=== PATIENT | male | born 1970 | race Caucasian/White ===

== ENCOUNTER 2017-04-19 09:49 | Inpatient (IN) | payer OTHER ==
[2017-04-19 10:55] VITALS: BMI 23.8
--- NOTE | 2017-04-19 11:07 | HP ---
COWS - Scale Resting Pulse: 0= DE 80 or Below Sweatin= Chills/Flushing Restless Observation: 1= Difficult to Sit Still Pupil Size: 0= Normal to Room Light Bone or Joint Aches: 1= Mild Discomfort Runny Nose/ Eye Tearin= Nasal Congestion GI Upset > 30mins: 1= Stomach Cramp Tremor Observation: 1= Tremor [place], Not Seen Yawning Observation: 1= 1-2x During Session Anxiety or Irritability: 2=Irritable/Anxious Goose Flesh Skin: 0=Smooth Skin COWS Score: 9 Admission ROS S - HPI Chief Complaint: This is my present to myself - I want to be clean of all drugs Allergies/Adverse Reactions: Allergies Allergy/AdvReac Type Severity Reaction Status Date / Time No Known Allergies Allergy Verified 04/19/17 11:04 History of Present Illness: 47 yo gentleman here for detox from intravenous heroin - also uses cocaine and alcohol but not daily. Multiple previous admissions for detox and rehab. Denies seizures or black outs. Exam Limitations: Clinical Condition - Ebola screening Have you traveled outside of the country in the last 21 days: No Have you had contact with anyone from an Ebola affected area: No Have you been sick,other than usual withdrawal symptoms: No Do you have a fever: No - Review of Systems Constitutional: Loss of Appetite, Night Sweats, Changes in sleep, Weakness EENT: reports: Blurred Vision, Nose Congestion Respiratory: reports: No Symptoms reported Cardiac: reports: No Symptoms Reported GI: reports: Nausea, Indigestion : reports: No Symptoms Reported Musculoskeletal: reports: Back Pain, Joint Pain, Muscle Pain Integumentary: reports: Lumps (at track avila both arms - non tender) Neuro: reports: Headache Endocrine: reports: No Symptoms Reported Hematology: reports: No Symptoms Reported Psychiatric: reports: Judgement Intact, Mood/Affect Appropiate, Orientated x3, Anxious Other Systems: Reviewed and Negative Patient History - Patient Medical History Hx Anemia: No Hx Asthma: Yes (albuterol) Hx Chronic Obstructive Pulmonary Disease (COPD): No Hx Cancer: No Hx Cardiac Disorders: No Hx Congestive Heart Failure: No Hx Hypertension: No Hx Hypercholesterolemia: No Hx Pacemaker: No HX Cerebrovascular Accident: No Hx Seizures: No Hx Dementia: No Hx Diabetes: No Hx Gastrointestinal Disorders: No Hx Liver Disease: No Hx Genitourinary Disorders: No Hx Sexually Transmitted Disorders: No Hx Renal Disease (ESRD): No Hx Thyroid Disease: No Hx Human Immunodeficiency Virus (HIV): No Hx Hepatitis C: Yes (2012 - untreated) Hx Depression: Yes (no meds) Hx Suicide Attempt: No Hx Bipolar Disorder: No Hx Schizophrenia: No - Patient Surgical History Past Surgical History: Yes Hx Neurologic Surgery: No Hx Cataract Extraction: No Hx Cardiac Surgery: No Hx Lung Surgery: No Hx Breast Surgery: No Hx Breast Biopsy: No Hx Abdominal Surgery: No Hx Appendectomy: No Hx Cholecystectomy: No Hx Genitourinary Surgery: No Hx Section: No Hx Orthopedic Surgery: Yes (R ANKLE SX IN 07/16) Other Surgical History: L HAND SX IN 2007 Anesthesia Reaction: No - PPD History Previous Implant?: Yes Documented Results: Negative w/proof Implanted On Prior [facility] Admission?: Yes Date: 09/15/16 Results: 0 mm PPD to be Administered?: No - Reproductive History Patient is a Female of Child Bearing Age (11 -55 yrs old): No (male) - Smoking Cessation Smoking history: Current every day smoker Have you smoked in the past 12 months: Yes Aproximately how many cigarettes per day: 20 Cigars Per Day: 0 Hx Chewing Tobacco Use: No Initiated information on smoking cessation: Yes 'Breaking Loose' booklet given: 04/19/17 (give on floor) - Substance & Tx. History Hx Alcohol Use: Yes (not daily) Hx Substance Use: Yes Substance Use Type: Alcohol, Cocaine, Heroin Hx Substance Use Treatment: Yes (detox, rehab methadone program, tried suboxone) - Substances Abused Alcohol Route: Oral Frequency: 3-6 times per week Amount used: two 40oz malt liquor Age of first use: 12 Date of Last Use: 04/16/17 Cocaine Route: Inhalation Frequency: 3-6 times per week Amount used: $100 Age of first use: 14 Date of Last Use: 04/18/17 Heroin Route: Injection Frequency: Daily Amount used: two bundles Age of first use: 38 Date of Last Use: 04/18/17 Family Disease History - Family Disease History Family Disease History: Other: Father (no contact), Mother (alive, healthy) Admission Physical Exam BHS - Vital Signs Vital Signs: Vital Signs - 24 hr 04/19/17 10:51 Temperature 96.8 F L Pulse Rate 73 Respiratory 20 Rate Blood Pressure 105/61 - Physical General Appearance: Yes: Nourished, Appropriately Dressed, Mild Distress, Anxious HEENTM: Yes: Hearing grossly Normal, Normal ENT Inspection, Normocephalic, Normal Voice, Pharynx Normal Respiratory: Yes: No Respiratory Distress, Wheezing Neck: Yes: No masses,lesions,Nodules, Supple, Trachea in good position Breast: Yes: Breast Exam Deferred Cardiology: Yes: Regular Rhythm, Regular Rate Abdominal: Yes: Flat, Soft Genitourinary: Yes: Frequency Back: Yes: Normal Inspection Musculoskeletal: Yes: full range of Motion, Gait Steady, Joint Stiffness Extremities: Yes: Normal Inspection, Normal Range of Motion Neurological: Yes: Fully Oriented, Alert, Normal Mood/Affect, Normal Response Integumentary: Yes: Normal Color, Warm Lymphatic: Yes: Within Normal Limits - Diagnostic (1) Opiate dependence Current Visit: Yes Status: Chronic Qualifiers: Substance use status: uncomplicated Qualified Code(s): F11.20 - Opioid dependence, uncomplicated (2) Asthma Current Visit: Yes Status: Chronic (3) Hepatitis C Current Visit: Yes Status: Chronic Qualifiers: Viral hepatitis chronicity: chronic Hepatic coma status: without hepatic coma Qualified Code(s): B18.2 - Chronic viral hepatitis C (4) Cocaine dependence Current Visit: Yes Status: Chronic Qualifiers: Substance use status: uncomplicated Qualified Code(s): F14.20 - Cocaine dependence, uncomplicated (5) Nicotine dependence Current Visit: Yes Status: Chronic Qualifiers: Nicotine product type: cigarettes Substance use status: uncomplicated Qualified Code(s): F17.210 - Nicotine dependence, cigarettes, uncomplicated Cleared for Admission [facility] - Detox or Rehab [facility] Level of Care: Medically Managed Detox Regimen/Protocol: Methadone [facility] Breath Alcohol Content Breath Alcohol Content: 0 Urine Drug Screen - Results Drug Screen Negative: No Urine Drug Screen Results: DANIE-Cocaine, OPI-Opiates
[2017-04-19] MEDS ORDERED: MAG HYDROX/AL HYDROX/SIMETH 30 ML UNIT-DOSE CUP PO PRN (11:09)
[2017-04-19] MEDS ORDERED: MENTHOL/PHENOL 1 EACH UD MM PRN (11:09)
[2017-04-19] MEDS ORDERED: MAGNESIUM CITRATE 300 ML BOTTLE PO PRN (11:09)
[2017-04-19] MEDS ORDERED: MAGNESIUM HYDROX 2400MG/30ML ORAL SUSPENSION 30 ML CUP PO PRN (11:09)
[2017-04-19] MEDS ORDERED: LOPERAMIDE HCL 2 MG CAPSULE PO PRN (11:09)
[2017-04-19] MEDS ORDERED: NICOTINE POLACRILEX 4 MG GUM BUC PRN (11:09)
[2017-04-19] MEDS ORDERED: P-EPHED 60MG/TRIPROLIDI 2.5MG TABLET PO PRN (11:09)
[2017-04-19] MEDS ORDERED: guaiFENesin/D-METHORPHAN HB 10 ML UNIT-DOSE CUPS PO PRN (11:09)
[2017-04-19] MEDS ORDERED: ALBUTEROL SO4 6.7 GM HFA INHALER IH PRN (11:11)
[2017-04-19] MEDS ORDERED: METHADONE HCL 10 MG TABLET (FOR DETOX USE ONLY) PO ONE ×2 (12:30→23:00)
--- NOTE | 2017-04-19 13:39 | CONSULT ---
[facility] Psychiatric Consult - Data Date of interview: 04/19/17 Admission source: [facility] Identifying data: This is one of multiple admissions to [facility] for this 47 y/ o male seeking detox treatment,on ,for alcohol,cocaine and heroin dependence.Patient is ,a father of two,domiciled and currently employed (self-report). Substance Abuse History: Patient admits to abusing heroin via the intravenous route (2 bundles/day;last use was on 04/18/13.Started using heroin at age 38.Has been drinking beer since age 14 (2 X 40 oz) twice a week.last use was on .Snorts cociane.Abuse started at age 14 and most recent use was .Patient smokes one pack of cigarettes daily. Medical History: Hepatitis C and bronchial asthma.History of orthosurgery for fracture of right ankle (2010) and hand surgery in 2007 (left hand). Psychiatric History: Patient denies. Physical/Sexual Abuse/Trauma History: Patient denies. Additional Comment: Urine Drug Screen Results : positive for cocaine and opiates. Mental Status Exam - Mental Status Exam Alert and Oriented to: Time, Place, Person Cognitive Function: Good Patient Appearance: Unkempt, Disheveled Mood: Withdrawn (dysphoric) Affect: Constricted Patient Behavior: Sedated (mildly sedated;able to answer simple questions), Fatigued, Cooperative Speech Pattern: Clear Voice Loudness: Moderately Soft/Quiet Thought Process: Goal Oriented Thought Disorder: Not Present Hallucinations: Denies Suicidal Ideation: Denies Homicidal Ideation: Denies Insight/Judgement: Poor Sleep: Fair Appetite: Good (as evidenced by empty foodtray at bedside) Muscle strength/Tone: Normal Gait/Station: Normal (observed walking earlier) Psychiatric Findings - Problem List ([place] 1, 2,3) (1) Opioid dependence with withdrawal Current Visit: Yes Status: Acute (2) Cocaine dependence Current Visit: Yes Status: Acute Qualifiers: Substance use status: uncomplicated Qualified Code(s): F14.20 - Cocaine dependence, uncomplicated (3) Alcohol dependence with uncomplicated withdrawal Current Visit: Yes Status: Acute (4) Nicotine dependence Current Visit: Yes Status: Acute Qualifiers: Nicotine product type: cigarettes Substance use status: uncomplicated Qualified Code(s): F17.210 - Nicotine dependence, cigarettes, uncomplicated (5) Substance induced mood disorder Current Visit: Yes Status: Acute (6) Asthma Current Visit: Yes Status: Chronic (7) Hepatitis C Current Visit: Yes Status: Chronic Qualifiers: Viral hepatitis chronicity: chronic Hepatic coma status: without hepatic coma Qualified Code(s): B18.2 - Chronic viral hepatitis C - Initial Treatment Plan Initial Treatment Plan: Previous records are reviewed.BHS report is appreciated.Psychoeducation (brief session due to the patient's mildly sedated state) is initiated.Detoxification treatment started.Observation.
[2017-04-19 18:19] LABS: URINE APPEARANCE CLEAR; URINE BILIRUBIN NEGATIVE (NEGATIVE); URINE BLOOD NEGATIVE (NEGATIVE); URINE COLOR DKYELLOW; URINE GLUCOSE (UA) NEGATIVE (NEGATIVE); URINE KETONE TRACE (NEGATIVE); URINE LEUK ESTERASE NEGATIVE (NEGATIVE); URINE NITRITE NEGATIVE (NEGATIVE); URINE PROTEIN 1+ (NEGATIVE); URINE UROBILINOGEN NEGATIVE mg/dL (0.2-1.0)
[2017-04-19 18:22] LABS: URINE MUCUS FEW; URINE RBC 1 /hpf (0-3); URINE WBC 4 /hpf (3-5)
[2017-04-19] MEDS: THIAMINE HCL 100 MG TABLET (FP) PO SCH (22:30)
[2017-04-19] MEDS: diphenhydrAMINE HCL 50 MG CAPSULE PO PRN (22:30)
[2017-04-19] MEDS: diazePAM 5 MG TABLET PO PRN (22:30)
[2017-04-20] MEDS: ACETAMINOPHEN 325 MG TABLET (FP) PO PRN ×2 (03:30→17:45)
[2017-04-20] MEDS: diazePAM 5 MG TABLET PO PRN ×5 (03:30→22:49)
[2017-04-20] MEDS: hydrOXYzine PAMOATE 50 MG CAPSULE (FP) PO PRN ×3 (06:21→22:49)
[2017-04-20] MEDS: PRENATAL VITAMINS W/ FOLIC ACID TABLET (FP) PO SCH (09:48)
[2017-04-20] MEDS ORDERED: METHADONE HCL 10 MG TABLET (FOR DETOX USE ONLY) PO ONE (10:00)
[2017-04-20 10:03] LABS: MCH 28.3 pg (25.7-33.7); MEAN CELL VOLUME 85.5 fl (80-96); MEAN PLT VOLUME 9.4 fl (7.5-11.1); PLATELET COUNT 217 K/MM3 (134-434); RDW 14.9 % (11.9-15.9); WHITE BLOOD COUNT 5.5 K/mm3 (4.0-10.0)
[2017-04-20 10:14] LABS: ALBUMIN 2.8 g/dl (3.4-5.0); ANION GAP 5 (8-16); CALCIUM 8.5 mg/dL (8.5-10.1); CO2 29 mmol/L (21-32)
[2017-04-20 10:21] LABS: ALK PHOS 119 U/L (45-117); BILIRUBIN,TOTAL 0.4 mg/dL (0.2-1.0); CREATININE 0.7 mg/dL (0.7-1.3); GLUCOSE,RANDOM 96 mg/dL (74-106); SGOT/AST 42 U/L (15-37); SGPT/ALT 52 U/L (12-78); TOT PROT 7.8 g/dl (6.4-8.2)
--- NOTE | 2017-04-20 13:28 | EKG ---
Test Reason : Blood Pressure : / mmHG Vent. Rate : 076 BPM Atrial Rate : 076 BPM P-R Int : 140 ms QRS Dur : 090 ms QT Int : 374 ms P-R-T Axes : 071 070 046 degrees QTc Int : 420 ms NORMAL SINUS RHYTHM NORMAL ECG NO PREVIOUS ECGS AVAILABLE Confirmed by STEFAN FORBES, JOSE ([id number]) on 04/20/2017 1:27:44 PM Referred By: Confirmed By:JOSE AVILES MD
--- NOTE | 2017-04-20 16:04 | PN ---
BHS COWS - Scale Resting Pulse: 1= MD 81-100 Sweatin=Flushed/Facial Moisture Restless Observation: 3= Extraneous Movement Pupil Size: 0= Normal to Room Light Bone or Joint Aches: 2= Severe Diffuse Aches Runny Nose/ Eye Tearin= Runny Nose/Eyes GI Upset > 30mins: 2= Nausea/Diarrhea Tremor Observation of Outstretched Hands: 2= Slight Tremor Visible Yawning Observation: 1= 1-2x During Session Anxiety or Irritability: 2=Irritable/Anxious Goose Flesh Skin: 0=Smooth Skin COWS Score: 17 BHS Progress Note (SOAP) Subjective: Anxious, sweating, restless, legs and back pain, interrupted sleep Objective: 04/20/17 16:01 Last Vital Signs Temp Pulse Resp BP Pulse Ox 96.7 F L 82 16 128/73 04/20/17 13:11 04/20/17 13:11 04/20/17 13:11 04/20/17 13:11 Laboratory Tests 04/19/17 04/20/17 04/20/17 16:08 07:15 07:15 WBC 5.5 RBC 4.39 Hgb 12.4 Hct 37.5 MCV 85.5 MCH 28.3 MCHC 33.0 RDW 14.9 Plt Count 217 MPV 9.4 Sodium 139 Potassium 4.3 Chloride 105 Carbon Dioxide 29 Anion Gap 5 L BUN 11 D Creatinine 0.7 Creat Clearance w eGFR > 60 Random Glucose 96 Calcium 8.5 Total Bilirubin 0.4 AST 42 H ALT 52 D Alkaline Phosphatase 119 H Total Protein 7.8 Albumin 2.8 L Urine Color Dkyellow Urine Appearance Clear Urine pH 5.0 Ur Specific [place] >= 1.030 H Urine Protein 1+ H Urine Glucose (UA) Negative Urine Ketones Trace H Urine Blood Negative Urine Nitrite Negative Urine Bilirubin Negative Urine Urobilinogen Negative Ur Leukocyte Esterase Negative Urine RBC 1 Urine WBC 4 Urine Mucus Few RPR Titer 04/20/17 07:15 WBC RBC Hgb Hct MCV MCH MCHC RDW Plt Count MPV Sodium Potassium Chloride Carbon Dioxide Anion Gap BUN Creatinine Creat Clearance w eGFR Random Glucose Calcium Total Bilirubin AST ALT Alkaline Phosphatase Total Protein Albumin Urine Color Urine Appearance Urine pH Ur Specific [place] Urine Protein Urine Glucose (UA) Urine Ketones Urine Blood Urine Nitrite Urine Bilirubin Urine Urobilinogen Ur Leukocyte Esterase Urine RBC Urine WBC Urine Mucus RPR Titer Nonreactive Labs noted: UA 1+ protein Assessment: 04/20/17 16:02 Withdrawal symptoms Noted with proteinuria Plan: Continue detox Proteinuria: encouraged to drink lots of water, repeat UA
[2017-04-20] MEDS: CYCLOBENZAPRINE HCL 10 MG TABLET (FP) PO SCH (22:49)
[2017-04-20] MEDS: THIAMINE HCL 100 MG TABLET (FP) PO SCH (22:49)
[2017-04-21] MEDS: diazePAM 5 MG TABLET PO PRN ×3 (04:44→22:02)
[2017-04-21] MEDS: CYCLOBENZAPRINE HCL 10 MG TABLET (FP) PO SCH ×3 (05:22→22:02)
[2017-04-21] MEDS: hydrOXYzine PAMOATE 50 MG CAPSULE (FP) PO PRN (07:55)
[2017-04-21] MEDS ORDERED: METHADONE HCL 5 MG TABLET (FOR DETOX USE ONLY) PO ONE (10:00)
[2017-04-21] MEDS: PRENATAL VITAMINS W/ FOLIC ACID TABLET (FP) PO SCH (10:13)
--- NOTE | 2017-04-21 16:08 | PN ---
BHS COWS - Scale Resting Pulse: 2= SD 101-120 Sweatin=Flushed/Facial Moisture Restless Observation: 1= Difficult to Sit Still Pupil Size: 0= Normal to Room Light Bone or Joint Aches: 2= Severe Diffuse Aches Runny Nose/ Eye Tearin= Nasal Congestion GI Upset > 30mins: 1= Stomach Cramp Tremor Observation of Outstretched Hands: 2= Slight Tremor Visible Yawning Observation: 2= >3x During Session Anxiety or Irritability: 2=Irritable/Anxious Goose Flesh Skin: 0=Smooth Skin COWS Score: 15 BHS Progress Note (SOAP) Subjective: Tremors, Fatigue, Sweating, Interrupted Sleep, H/A, Lower Back Ache, Stomach Cramping. Objective: PT. A & O X 3. NO ACUTE DISTRESS. 04/21/17 16:05 Vital Signs Temperature 95.8 F L 04/21/17 10:00 Pulse Rate 81 04/21/17 10:00 Respiratory Rate 18 04/21/17 10:00 Blood Pressure 121/74 04/21/17 10:00 O2 Sat by Pulse Oximetry (%) Laboratory Tests 04/19/17 04/20/17 04/20/17 16:08 07:15 07:15 WBC 5.5 RBC 4.39 Hgb 12.4 Hct 37.5 MCV 85.5 MCH 28.3 MCHC 33.0 RDW 14.9 Plt Count 217 MPV 9.4 Sodium 139 Potassium 4.3 Chloride 105 Carbon Dioxide 29 Anion Gap 5 L BUN 11 D Creatinine 0.7 Creat Clearance w eGFR > 60 Random Glucose 96 Calcium 8.5 Total Bilirubin 0.4 AST 42 H ALT 52 D Alkaline Phosphatase 119 H Total Protein 7.8 Albumin 2.8 L Urine Color Dkyellow Urine Appearance Clear Urine pH 5.0 Ur Specific [place] >= 1.030 H Urine Protein 1+ H Urine Glucose (UA) Negative Urine Ketones Trace H Urine Blood Negative Urine Nitrite Negative Urine Bilirubin Negative Urine Urobilinogen Negative Ur Leukocyte Esterase Negative Urine RBC 1 Urine WBC 4 Urine Mucus Few RPR Titer 04/20/17 07:15 WBC RBC Hgb Hct MCV MCH MCHC RDW Plt Count MPV Sodium Potassium Chloride Carbon Dioxide Anion Gap BUN Creatinine Creat Clearance w eGFR Random Glucose Calcium Total Bilirubin AST ALT Alkaline Phosphatase Total Protein Albumin Urine Color Urine Appearance Urine pH Ur Specific [place] Urine Protein Urine Glucose (UA) Urine Ketones Urine Blood Urine Nitrite Urine Bilirubin Urine Urobilinogen Ur Leukocyte Esterase Urine RBC Urine WBC Urine Mucus RPR Titer Nonreactive LABS NOTED. Assessment: 04/21/17 16:06 WITHDRAWAL SYMPTOMS. Plan: CONTINUE DETOX.
[2017-04-21] MEDS: THIAMINE HCL 100 MG TABLET (FP) PO SCH (22:02)
[2017-04-21] MEDS: diphenhydrAMINE HCL 50 MG CAPSULE PO PRN (22:03)
[2017-04-22] MEDS: diazePAM 5 MG TABLET PO PRN ×2 (04:09→10:07)
[2017-04-22] MEDS: IBUPROFEN 400 MG TABLET (FP) PO PRN (04:11)
[2017-04-22] MEDS: CYCLOBENZAPRINE HCL 10 MG TABLET (FP) PO SCH ×3 (05:37→22:35)
[2017-04-22] MEDS ORDERED: METHADONE HCL 5 MG TABLET (FOR DETOX USE ONLY) PO ONE (10:00)
[2017-04-22] MEDS: PRENATAL VITAMINS W/ FOLIC ACID TABLET (FP) PO SCH (10:06)
--- NOTE | 2017-04-22 13:10 | PN ---
BHS Progress Note (SOAP) Subjective: Tremors, Sweating, Fatigue, Lower Back Ache, H/A, Stomach Cramping, Body aches. Objective: PT. A & O X 3, OBSERVED AMBULATING ON UNIT. NO ACUTE DISTRESS. 04/22/17 13:07 Vital Signs Temperature 97.8 F 04/22/17 09:46 Pulse Rate 87 04/22/17 09:46 Respiratory Rate 18 04/22/17 09:46 Blood Pressure 115/79 04/22/17 09:46 O2 Sat by Pulse Oximetry (%) Laboratory Tests 04/19/17 04/20/17 04/20/17 16:08 07:15 07:15 WBC 5.5 RBC 4.39 Hgb 12.4 Hct 37.5 MCV 85.5 MCH 28.3 MCHC 33.0 RDW 14.9 Plt Count 217 MPV 9.4 Sodium 139 Potassium 4.3 Chloride 105 Carbon Dioxide 29 Anion Gap 5 L BUN 11 D Creatinine 0.7 Creat Clearance w eGFR > 60 Random Glucose 96 Calcium 8.5 Total Bilirubin 0.4 AST 42 H ALT 52 D Alkaline Phosphatase 119 H Total Protein 7.8 Albumin 2.8 L Urine Color Dkyellow Urine Appearance Clear Urine pH 5.0 Ur Specific [place] >= 1.030 H Urine Protein 1+ H Urine Glucose (UA) Negative Urine Ketones Trace H Urine Blood Negative Urine Nitrite Negative Urine Bilirubin Negative Urine Urobilinogen Negative Ur Leukocyte Esterase Negative Urine RBC 1 Urine WBC 4 Urine Mucus Few RPR Titer 04/20/17 07:15 WBC RBC Hgb Hct MCV MCH MCHC RDW Plt Count MPV Sodium Potassium Chloride Carbon Dioxide Anion Gap BUN Creatinine Creat Clearance w eGFR Random Glucose Calcium Total Bilirubin AST ALT Alkaline Phosphatase Total Protein Albumin Urine Color Urine Appearance Urine pH Ur Specific [place] Urine Protein Urine Glucose (UA) Urine Ketones Urine Blood Urine Nitrite Urine Bilirubin Urine Urobilinogen Ur Leukocyte Esterase Urine RBC Urine WBC Urine Mucus RPR Titer Nonreactive LABS NOTED. RESULTS OF REPEAT UA FROM EARLIER TODAY PENDING. 04/22/17 13:10 Assessment: 04/22/17 13:08 WITHDRAWAL SYMPTOMS. Plan: CONTINUE DETOX.
[2017-04-22 16:38] LABS: URINE APPEARANCE CLEAR; URINE BILIRUBIN NEGATIVE (NEGATIVE); URINE BLOOD NEGATIVE (NEGATIVE); URINE COLOR YELLOW; URINE GLUCOSE (UA) NEGATIVE (NEGATIVE); URINE KETONE NEGATIVE (NEGATIVE); URINE LEUK ESTERASE NEGATIVE (NEGATIVE); URINE NITRITE NEGATIVE (NEGATIVE); URINE PROTEIN NEGATIVE (NEGATIVE); URINE UROBILINOGEN NEGATIVE mg/dL (0.2-1.0)
[2017-04-22] MEDS: THIAMINE HCL 100 MG TABLET (FP) PO SCH (22:35)
[2017-04-22] MEDS: diphenhydrAMINE HCL 50 MG CAPSULE PO PRN (22:35)
[2017-04-23] MEDS: IBUPROFEN 400 MG TABLET (FP) PO PRN (04:54)
[2017-04-23] MEDS: CYCLOBENZAPRINE HCL 10 MG TABLET (FP) PO SCH ×3 (06:42→22:34)
[2017-04-23] MEDS ORDERED: LIDOCAINE 5% TOPICAL PATCH TP ONE (09:23)
[2017-04-23] MEDS: PRENATAL VITAMINS W/ FOLIC ACID TABLET (FP) PO SCH (09:58)
[2017-04-23] MEDS ORDERED: METHADONE HCL 10 MG TABLET (FOR DETOX USE ONLY) PO ONE (10:00)
--- NOTE | 2017-04-23 11:46 | PN ---
BHS Progress Note (SOAP) Subjective: Sweating, Lower Back Ache, Interrupted sleep. Objective: PT. A & O X 3, OBSERVED AMBULATING ON UNIT. NO ACUTE DISTRESS. 04/23/17 11:43 Vital Signs Temperature 97.6 F 04/23/17 09:56 Pulse Rate 92 H 04/23/17 09:56 Respiratory Rate 20 04/23/17 09:56 Blood Pressure 100/69 04/23/17 09:56 O2 Sat by Pulse Oximetry (%) Laboratory Tests 04/19/17 04/20/17 04/20/17 16:08 07:15 07:15 WBC 5.5 RBC 4.39 Hgb 12.4 Hct 37.5 MCV 85.5 MCH 28.3 MCHC 33.0 RDW 14.9 Plt Count 217 MPV 9.4 Sodium 139 Potassium 4.3 Chloride 105 Carbon Dioxide 29 Anion Gap 5 L BUN 11 D Creatinine 0.7 Creat Clearance w eGFR > 60 Random Glucose 96 Calcium 8.5 Total Bilirubin 0.4 AST 42 H ALT 52 D Alkaline Phosphatase 119 H Total Protein 7.8 Albumin 2.8 L Urine Color Dkyellow Urine Appearance Clear Urine pH 5.0 Ur Specific [place] >= 1.030 H Urine Protein 1+ H Urine Glucose (UA) Negative Urine Ketones Trace H Urine Blood Negative Urine Nitrite Negative Urine Bilirubin Negative Urine Urobilinogen Negative Ur Leukocyte Esterase Negative Urine RBC 1 Urine WBC 4 Urine Mucus Few RPR Titer 04/20/17 04/22/17 07:15 10:20 WBC RBC Hgb Hct MCV MCH MCHC RDW Plt Count MPV Sodium Potassium Chloride Carbon Dioxide Anion Gap BUN Creatinine Creat Clearance w eGFR Random Glucose Calcium Total Bilirubin AST ALT Alkaline Phosphatase Total Protein Albumin Urine Color Yellow Urine Appearance Clear Urine pH 6.0 Ur Specific [place] 1.020 Urine Protein Negative Urine Glucose (UA) Negative Urine Ketones Negative Urine Blood Negative Urine Nitrite Negative Urine Bilirubin Negative Urine Urobilinogen Negative Ur Leukocyte Esterase Negative Urine RBC Urine WBC Urine Mucus RPR Titer Nonreactive LABS NOTED. RESULTS OF REPEAT UA FROM 04/22/2017 NOTED. NO NEED FOR FURTHER ACTION AT THIS TIME. 04/23/17 11:46 Assessment: 04/23/17 11:44 WITHDRAWAL SYMPTOMS. Plan: CONTINUE DETOX.
[2017-04-23] MEDS ORDERED: LIDOCAINE PATCH REMOVAL MC SCH (22:00)
[2017-04-23 22:14] VITALS: BP 117/69; PULSE 81; TEMP 97
[2017-04-23] MEDS: diphenhydrAMINE HCL 50 MG CAPSULE PO PRN (22:34)
[2017-04-23] MEDS: THIAMINE HCL 100 MG TABLET (FP) PO SCH (22:34)
[2017-04-24] MEDS ORDERED: METHADONE HCL 5 MG TABLET (FOR DETOX USE ONLY) PO ONE (06:00)
--- NOTE | 2017-04-24 19:37 | DS ---
[facility] Detox Discharge Summary Admission Date: 04/19/17 Discharge Date: 04/24/17 - History Present History: Cocaine Dependence, Opioid Dependence Additional Comments: ADVISED PATIENT TO FOLLOW-UP AT [facility] ([place], [place]) PER DISCHARGE PLANNING AND ARRANGEMENTS. Pertinent Past History: Asthma, Hep C, Depression. - Physical Exam Results Vital Signs: Vital Signs Temperature 97.0 F L 04/23/17 22:13 Pulse Rate 81 04/23/17 22:13 Respiratory Rate 18 04/24/17 00:40 Blood Pressure 117/69 04/23/17 22:13 O2 Sat by Pulse Oximetry (%) Pertinent Admission Physical Exam Findings: WITHDRAWAL SYMPTOMS. Laboratory Tests 04/19/17 04/20/17 04/20/17 16:08 07:15 07:15 WBC 5.5 RBC 4.39 Hgb 12.4 Hct 37.5 MCV 85.5 MCH 28.3 MCHC 33.0 RDW 14.9 Plt Count 217 MPV 9.4 Sodium 139 Potassium 4.3 Chloride 105 Carbon Dioxide 29 Anion Gap 5 L BUN 11 D Creatinine 0.7 Creat Clearance w eGFR > 60 Random Glucose 96 Calcium 8.5 Total Bilirubin 0.4 AST 42 H ALT 52 D Alkaline Phosphatase 119 H Total Protein 7.8 Albumin 2.8 L Urine Color Dkyellow Urine Appearance Clear Urine pH 5.0 Ur Specific [place] >= 1.030 H Urine Protein 1+ H Urine Glucose (UA) Negative Urine Ketones Trace H Urine Blood Negative Urine Nitrite Negative Urine Bilirubin Negative Urine Urobilinogen Negative Ur Leukocyte Esterase Negative Urine RBC 1 Urine WBC 4 Urine Mucus Few RPR Titer 04/20/17 04/22/17 07:15 10:20 WBC RBC Hgb Hct MCV MCH MCHC RDW Plt Count MPV Sodium Potassium Chloride Carbon Dioxide Anion Gap BUN Creatinine Creat Clearance w eGFR Random Glucose Calcium Total Bilirubin AST ALT Alkaline Phosphatase Total Protein Albumin Urine Color Yellow Urine Appearance Clear Urine pH 6.0 Ur Specific [place] 1.020 Urine Protein Negative Urine Glucose (UA) Negative Urine Ketones Negative Urine Blood Negative Urine Nitrite Negative Urine Bilirubin Negative Urine Urobilinogen Negative Ur Leukocyte Esterase Negative Urine RBC Urine WBC Urine Mucus RPR Titer Nonreactive LABS NOTED. - Treatment Hospital Course: Detox Protocol Followed, Detoxed Safely, Responded well, Discharged Condition Good, Rehab Referral Accepted Patient has Accepted a Rehab Referral to: [place], [place]. - Medication Discharge Medications: Ambulatory Orders Albuterol Sulfate Inhaler - [Ventolin HFA Inhaler -] 2 inh PO Q4H PRN #1 inh - Diagnosis (1) Cocaine dependence Status: Acute Qualifiers: Substance use status: uncomplicated Qualified Code(s): F14.20 - Cocaine dependence, uncomplicated (2) Nicotine dependence Status: Chronic Qualifiers: Nicotine product type: cigarettes Substance use status: uncomplicated Qualified Code(s): F17.210 - Nicotine dependence, cigarettes, uncomplicated (3) Opioid dependence with withdrawal Status: Acute (4) Substance induced mood disorder Status: Acute (5) Asthma Status: Chronic (6) Hepatitis C Status: Chronic Qualifiers: Viral hepatitis chronicity: chronic Hepatic coma status: without hepatic coma Qualified Code(s): B18.2 - Chronic viral hepatitis C (7) Opiate dependence Status: Chronic Qualifiers: Substance use status: uncomplicated Qualified Code(s): F11.20 - Opioid dependence, uncomplicated - AMA Did Patient Leave Against Medical Advice: No
== END 2017-04-24 05:00 | disposition home or self-care (01) | DRG 773 ==
LOC: YASAS 09:49 → Y3N 11:42
PROVIDERS: ADMIT Internal Medicine; ATTEND Internal Medicine
PROC: HZ2ZZZZ Detoxification Services for Substance Abuse Treatment (ICD-10-PCS; principal; 2017-04-24)
DX: F11.23 Opioid dependence with withdrawal (principal); F10.230 Alcohol dependence with withdrawal, uncomplicated; F14.20 Cocaine dependence, uncomplicated; F17.210 Nicotine dependence, cigarettes, uncomplicated; F19.24 Other psychoactive substance dependence with psychoactive substance-induced mood disorder; B18.2 Chronic viral hepatitis C; J45.909 Unspecified asthma, uncomplicated
CPT/HCPCS: 36415; 80053; 81003; 81015; 85027; 86593; 93005; 93010

== ENCOUNTER 2017-06-03 21:27 | Inpatient (IN) | payer OTHER ==
[2017-06-03] MEDS ORDERED: METHADONE HCL 10 MG TABLET (FOR DETOX USE ONLY) PO ONE ×2 (23:00→23:27)
[2017-06-03 23:13] VITALS: BMI 24.3
--- NOTE | 2017-06-03 23:23 | HP ---
COWS - Scale Resting Pulse: 1= [place] 81-100 Sweatin= Chills/Flushing Restless Observation: 1= Difficult to Sit Still Pupil Size: 0= Normal to Room Light Bone or Joint Aches: 2= Severe Diffuse Aches Runny Nose/ Eye Tearin= Runny Nose/Eyes GI Upset > 30mins: 3= Vomiting/Diarrhea Tremor Observation: 2= Slight Tremor Visible Yawning Observation: 0= None Anxiety or Irritability: 2=Irritable/Anxious Goose Flesh Skin: 0=Smooth Skin COWS Score: 14 Admission [facility] Chief Complaint: withdrawal sx Allergies/Adverse Reactions: Allergies Allergy/AdvReac Type Severity Reaction Status Date / Time No Known Allergies Allergy Verified 04/19/17 11:04 History of Present Illness: 47 years old male with long history of opiate nicotine dependence has hepatitis c and asthma and depression is admitted to detox Exam Limitations: No Limitations - Ebola screening Have you traveled outside of the country in the last 21 days: No (N) Have you had contact with anyone from an Ebola affected area: No Have you been sick,other than usual withdrawal symptoms: No Do you have a fever: No - Review of Systems Constitutional: Loss of Appetite, Changes in sleep, Unintentional Wgt. Loss, Unexplained wgt Loss EENT: reports: Dental Problems (multiple teeth missing) Respiratory: reports: SOB with Exertion Cardiac: reports: No Symptoms Reported : reports: No Symptoms Reported Musculoskeletal: reports: Back Pain, Joint Pain, Muscle Pain, Neck Pain Integumentary: reports: Change in Color (hands and arms) Neuro: reports: Tremors Endocrine: reports: No Symptoms Reported Hematology: reports: No Symptoms Reported Psychiatric: reports: Judgement Intact, Orientated x3, Depressed Other Systems: Reviewed and Negative Patient History - Patient Medical History Hx Anemia: No Hx Asthma: Yes (albuterol) Hx Chronic Obstructive Pulmonary Disease (COPD): No Hx Cancer: No Hx Cardiac Disorders: No Hx Congestive Heart Failure: No Hx Hypertension: No Hx Hypercholesterolemia: No Hx Pacemaker: No HX Cerebrovascular Accident: No Hx Seizures: No Hx Dementia: No Hx Diabetes: No Hx Gastrointestinal Disorders: No Hx Liver Disease: No Hx Genitourinary Disorders: No Hx Sexually Transmitted Disorders: No Hx Renal Disease (ESRD): No Hx Thyroid Disease: No Hx Human Immunodeficiency Virus (HIV): No Hx Hepatitis C: Yes (2012 - untreated) Hx Depression: Yes (no meds) Hx Suicide Attempt: No Hx Bipolar Disorder: No Hx Schizophrenia: No - Patient Surgical History Past Surgical History: Yes Hx Neurologic Surgery: No Hx Cataract Extraction: No Hx Cardiac Surgery: No Hx Lung Surgery: No Hx Breast Surgery: No Hx Breast Biopsy: No Hx Abdominal Surgery: No Hx Appendectomy: No Hx Cholecystectomy: No Hx Genitourinary Surgery: No Hx Orthopedic Surgery: Yes (R ANKLE SX IN 07/16) Other Surgical History: L HAND SX IN 2007 Anesthesia Reaction: No - PPD History Previous Implant?: Yes Documented Results: Negative w/proof Implanted On Prior R Admission?: Yes Date: 09/15/16 Results: 0 mm PPD to be Administered?: No - Smoking Cessation Smoking history: Current every day smoker Have you smoked in the past 12 months: Yes Aproximately how many cigarettes per day: 20 Cigars Per Day: 0 Hx Chewing Tobacco Use: No Initiated information on smoking cessation: Yes 'Breaking Loose' booklet given: 06/03/17 - Substance & Tx. History Hx Alcohol Use: No Hx Substance Use: Yes Substance Use Type: Cocaine, Opiates Hx Substance Use Treatment: Yes (04/19-04/24/17 [facility]) - Substances Abused Heroin Route: Injection Frequency: Daily Amount used: 20 bags Age of first use: 38 Date of Last Use: 06/03/17 Family Disease History - Family Disease History Family Disease History: Other: Father (no contact), Mother (alive, healthy) Admission Physical Exam BHS - Vital Signs Vital Signs: Vital Signs - 24 hr 06/03/17 23:09 Temperature 96.8 F L Pulse Rate 81 Respiratory 20 Rate Blood Pressure 120/79 - Physical General Appearance: Yes: Appropriately Dressed, Mild Distress, Thin, Tremorous, Irritable, Sweating, Anxious HEENTM: Yes: Hearing grossly Normal, Normal ENT Inspection, Normocephalic, Normal Voice Respiratory: Yes: Chest Non-Tender, Lungs Clear, Normal Breath Sounds, No Respiratory Distress, No Accessory Muscle Use Neck: Yes: Supple, Trachea in good position Breast: Yes: Breasts Symetrical Cardiology: Yes: Regular Rhythm, Regular Rate, S1, S2 Abdominal: Yes: Non Tender, Soft, Increased Bowel Sounds Genitourinary: Yes: Within Normal Limits Back: Yes: Normal Inspection Musculoskeletal: Yes: full range of Motion, Gait Steady, Back pain, Muscle Pain Neurological: Yes: Fully Oriented, Alert, Motor Strength 5/5, Normal Response, Depressed Affect Integumentary: Yes: Warm, Track [place] Lymphatic: Yes: Within Normal Limits - Diagnostic (1) Opioid dependence with withdrawal Current Visit: Yes Status: Acute (2) Asthma Current Visit: Yes Status: Chronic (3) Hepatitis C Current Visit: Yes Status: Chronic Qualifiers: Viral hepatitis chronicity: chronic Hepatic coma status: without hepatic coma Qualified Code(s): B18.2 - Chronic viral hepatitis C (4) Nicotine dependence Current Visit: Yes Status: Acute Qualifiers: Nicotine product type: cigarettes Substance use status: in withdrawal Qualified Code(s): F17.213 - Nicotine dependence, cigarettes, with withdrawal (5) Weight decreased Current Visit: Yes Status: Acute Comment: ensure (6) Depression (emotion) Current Visit: Yes Status: Suspected Qualifiers: Depression Type: dysthymia Qualified Code(s): F34.1 - Dysthymic disorder Cleared for Admission [facility] - Detox or Rehab [facility] Level of Care: Medically Managed Detox Regimen/Protocol: Methadone [facility] Breath Alcohol Content Breath Alcohol Content: 0 Urine Drug Screen - Results Drug Screen Negative: No Urine Drug Screen Results: DANIE-Cocaine, OPI-Opiates
[2017-06-03] MEDS ORDERED: ACETAMINOPHEN 325 MG TABLET (FP) PO PRN (23:27)
[2017-06-03] MEDS ORDERED: MAGNESIUM HYDROX 2400MG/30ML ORAL SUSPENSION 30 ML CUP PO PRN (23:27)
[2017-06-03] MEDS ORDERED: guaiFENesin/D-METHORPHAN HB 10 ML UNIT-DOSE CUPS PO PRN (23:27)
[2017-06-03] MEDS ORDERED: LOPERAMIDE HCL 2 MG CAPSULE PO PRN (23:27)
[2017-06-03] MEDS ORDERED: MAG HYDROX/AL HYDROX/SIMETH 30 ML UNIT-DOSE CUP PO PRN (23:27)
[2017-06-03] MEDS ORDERED: P-EPHED 60MG/TRIPROLIDI 2.5MG TABLET PO PRN (23:27)
[2017-06-03] MEDS ORDERED: MAGNESIUM CITRATE 300 ML BOTTLE PO PRN (23:27)
[2017-06-03] MEDS ORDERED: MENTHOL/PHENOL 1 EACH UD MM PRN (23:27)
[2017-06-03] MEDS ORDERED: NICOTINE POLACRILEX 4 MG GUM BC PRN (23:27)
[2017-06-03] MEDS ORDERED: diazePAM 5 MG TABLET PO PRN (23:27)
[2017-06-03] MEDS ORDERED: ALBUTEROL SO4 6.7 GM HFA INHALER IH PRN (23:30)
[2017-06-04] MEDS ORDERED: METHADONE HCL 10 MG TABLET (FOR DETOX USE ONLY) PO ONE ×4 (00:04→23:00)
[2017-06-04] MEDS: diphenhydrAMINE HCL 50 MG CAPSULE PO PRN ×2 (00:49→22:22)
[2017-06-04] MEDS: diazePAM 5 MG TABLET PO PRN ×2 (00:49→22:22)
[2017-06-04] MEDS: LIDOCAINE PATCH REMOVAL MC SCH ×2 (00:51→22:56)
[2017-06-04] MEDS: IBUPROFEN 400 MG TABLET (FP) PO PRN (00:53)
[2017-06-04] MEDS: CYCLOBENZAPRINE HCL 10 MG TABLET (FP) PO SCH ×3 (05:54→22:21)
--- NOTE | 2017-06-04 09:47 | CONSULT ---
[facility] Psychiatric Consult - Data Date of interview: 06/04/17 Admission source: [facility] Identifying data: This is 47 years old female with no psychiatric hospitalizatiojn history intoxicated wioth: Opioids, Alcohol, history of Cocaine and Nicotine dependence as well Substance Abuse History: - Smoking Cessation. Smoking history: Current every day smoker. Have you smoked in the past 12 months: Yes. Aproximately how many cigarettes per day: 20. Cigars Per Day: 0. Hx Chewing Tobacco Use: No. Initiated information on smoking cessation: Yes. 'Breaking Loose' booklet given : 06/03/17. - Substance & Tx. History. Hx Alcohol Use: No. Hx Substance Use: Yes. Substance Use Type: Cocaine, Opiates. Hx Substance Use Treatment: Yes (-04/24/17 [facility]). - Substances Abused. Heroin. Route: Injection. Frequency: Daily. Amount used: 20 bags. Age of first use: 38. Date of Last Use: 06/03/17 Medical History: Weight loss, Asthma, HepC+ Psychiatric History: Patient reports history of depression and anxiety, reports no medications taking prior to admission Physical/Sexual Abuse/Trauma History: Denies Additional Comment: Observation. Detox Unit Care Protocol Mental Status Exam - Mental Status Exam Alert and Oriented to: Person Cognitive Function: Fair Patient Appearance: Unkempt Mood: Sad Affect: Flat Patient Behavior: Sedated Speech Pattern: Delayed Voice Loudness: Mildly Soft/Quiet Thought Process: Circumstantial Thought Disorder: Being Controlled Hallucinations: Denies Suicidal Ideation: Denies Homicidal Ideation: Denies Insight/Judgement: Fair Sleep: Difficulty falling asleep Appetite: Weight loss Muscle strength/Tone: Mild Hypotonicity Gait/Station: Shuffling Additional Comments: Observation. Detox Unit Care Protocol Psychiatric Findings - Problem List ([place] 1, 2,3) (1) Nicotine dependence Current Visit: Yes Status: Acute Qualifiers: Nicotine product type: cigarettes Substance use status: in withdrawal Qualified Code(s): F17.213 - Nicotine dependence, cigarettes, with withdrawal (2) Opioid dependence with withdrawal Current Visit: Yes Status: Acute (3) Depression (emotion) Current Visit: Yes Status: Suspected Qualifiers: Depression Type: dysthymia Qualified Code(s): F34.1 - Dysthymic disorder (4) Alcohol dependence with uncomplicated withdrawal Current Visit: No Status: Acute (5) Cocaine dependence Current Visit: No Status: Acute Qualifiers: Substance use status: uncomplicated Qualified Code(s): F14.20 - Cocaine dependence, uncomplicated (6) Substance induced mood disorder Current Visit: No Status: Acute (7) Uncomplicated opioid dependence Current Visit: No Status: Acute (8) Alcohol dependence Current Visit: No Status: Chronic (9) Heroin dependence Current Visit: No Status: Chronic (10) Opiate dependence Current Visit: No Status: Chronic Qualifiers: Substance use status: uncomplicated Qualified Code(s): F11.20 - Opioid dependence, uncomplicated (11) Opioid-induced mood disorder Current Visit: No Status: Suspected - Initial Treatment Plan Initial Treatment Plan: Observation. Detox Unit Care Protocol
[2017-06-04 10:09] LABS: MCH 27.9 pg (25.7-33.7); MCHC 32.9 g/dl (32.0-35.9); MEAN CELL VOLUME 84.9 fl (80-96); MEAN PLT VOLUME 9.3 fl (7.5-11.1); PLATELET COUNT 195 K/MM3 (134-434); WHITE BLOOD COUNT 5.7 K/mm3 (4.0-10.0)
[2017-06-04 10:31] LABS: ANION GAP 5 (8-16); BILIRUBIN,TOTAL 0.5 mg/dL (0.2-1.0); CALCIUM 8.9 mg/dL (8.5-10.1); CO2 31 mmol/L (21-32); CREATININE 0.8 mg/dL (0.7-1.3); GLUCOSE,RANDOM 89 mg/dL (74-106); SGOT/AST 32 U/L (15-37); SGPT/ALT 48 U/L (12-78); TOT PROT 7.3 g/dl (6.4-8.2)
[2017-06-04 10:32] LABS: ALK PHOS 112 U/L (45-117)
[2017-06-04] MEDS: LIDOCAINE 5% TOPICAL PATCH TP SCH (10:34)
[2017-06-04] MEDS: NICOTINE 21 MG/24 HOURS TOPICAL PATCH TD SCH (10:34)
[2017-06-04] MEDS: PRENATAL VITAMINS W/ FOLIC ACID TABLET (FP) PO SCH (10:34)
--- NOTE | 2017-06-04 11:39 | PN ---
BHS COWS - Scale Resting Pulse: 1= [place] 81-100 Sweatin= Chills/Flushing Restless Observation: 1= Difficult to Sit Still Pupil Size: 1= Pupils >than Normal Bone or Joint Aches: 1= Mild Discomfort Runny Nose/ Eye Tearin= Nasal Congestion GI Upset > 30mins: 2= Nausea/Diarrhea Tremor Observation of Outstretched Hands: 1= Tremor [place], Not Seen Yawning Observation: 1= 1-2x During Session Anxiety or Irritability: 2=Irritable/Anxious Goose Flesh Skin: 3=Piloerection COWS Score: 15 BHS Progress Note (SOAP) Subjective: nausea, sweats, interrupted sleep, anxiety, tremors Objective: 06/04/17 11:38 Vital Signs - 8 hr 06/04/17 06/04/17 06:28 09:50 Temperature 97.5 F L 98.1 F Pulse Rate 63 87 Respiratory 16 20 Rate Blood Pressure 114/74 136/70 Laboratory Tests 06/04/17 06/04/17 07:00 07:00 WBC 5.7 RBC 4.23 Hgb 11.8 Hct 35.9 MCV 84.9 MCH 27.9 MCHC 32.9 RDW 15.0 Plt Count 195 MPV 9.3 Sodium 140 Potassium 3.7 Chloride 104 Carbon Dioxide 31 Anion Gap 5 L BUN 16 D Creatinine 0.8 Creat Clearance w eGFR > 60 Random Glucose 89 Calcium 8.9 Total Bilirubin 0.5 D AST 32 D ALT 48 Alkaline Phosphatase 112 Total Protein 7.3 Albumin 3.0 L Assessment: 06/04/17 11:38 withdrawal sx, supplement k Plan: cont detox, fluids, repeat labs
[2017-06-04] MEDS: BACITRACIN 0.9 GM PACKET TP SCH (22:21)
[2017-06-04] MEDS: THIAMINE HCL 100 MG TABLET (FP) PO SCH (22:21)
[2017-06-05] MEDS: CYCLOBENZAPRINE HCL 10 MG TABLET (FP) PO SCH ×3 (06:01→22:25)
[2017-06-05] MEDS ORDERED: METHADONE HCL 10 MG TABLET (FOR DETOX USE ONLY) PO ONE (10:00)
[2017-06-05] MEDS ORDERED: METHADONE HCL 5 MG TABLET (FOR DETOX USE ONLY) PO ONE (10:00)
[2017-06-05] MEDS: diazePAM 5 MG TABLET PO PRN ×2 (10:35→22:25)
[2017-06-05] MEDS: NICOTINE 21 MG/24 HOURS TOPICAL PATCH TD SCH (10:35)
[2017-06-05] MEDS: PRENATAL VITAMINS W/ FOLIC ACID TABLET (FP) PO SCH (10:35)
[2017-06-05] MEDS: LIDOCAINE 5% TOPICAL PATCH TP SCH (10:36)
--- NOTE | 2017-06-05 11:34 | EKG ---
Test Reason : Blood Pressure : / mmHG Vent. Rate : 066 BPM Atrial Rate : 066 BPM P-R Int : 148 ms QRS Dur : 092 ms QT Int : 408 ms P-R-T Axes : 067 069 048 degrees QTc Int : 427 ms NORMAL SINUS RHYTHM SEPTAL INFARCT , AGE UNDETERMINED ABNORMAL ECG WHEN COMPARED WITH ECG OF 19-APR-2017 11:29, NO SIGNIFICANT CHANGE WAS FOUND Confirmed by GAUDENCIO WALLACE MD ([id number]) on 06/05/2017 11:34:26 AM Referred By: Ramon Suresh Confirmed By:GAUDENCIO WALLACE MD
--- NOTE | 2017-06-05 13:12 | PN ---
BHS COWS - Scale Resting Pulse: 1= [place] 81-100 Sweatin= Chills/Flushing Restless Observation: 1= Difficult to Sit Still Pupil Size: 1= Pupils >than Normal Bone or Joint Aches: 1= Mild Discomfort Runny Nose/ Eye Tearin= Nasal Congestion GI Upset > 30mins: 2= Nausea/Diarrhea Tremor Observation of Outstretched Hands: 2= Slight Tremor Visible Yawning Observation: 1= 1-2x During Session Anxiety or Irritability: 2=Irritable/Anxious Goose Flesh Skin: 3=Piloerection COWS Score: 16 BHS Progress Note (SOAP) Subjective: nausea, sweats, interrutped sleep, anxiety, tremors Objective: 06/05/17 13:11 Vital Signs - 24 hr 06/04/17 06/04/17 06/05/17 16:57 22:00 00:30 Temperature 97 F L 97.7 F Pulse Rate 57 L 80 Respiratory 18 18 18 Rate Blood Pressure 124/72 149/77 06/05/17 06/05/17 06/05/17 03:30 06:36 09:31 Temperature 97.8 F 97.7 F Pulse Rate 60 89 Respiratory 18 18 18 Rate Blood Pressure 133/76 119/76 Laboratory Tests 06/04/17 06/04/17 06/04/17 07:00 07:00 07:00 WBC 5.7 RBC 4.23 Hgb 11.8 Hct 35.9 MCV 84.9 MCH 27.9 MCHC 32.9 RDW 15.0 Plt Count 195 MPV 9.3 Sodium 140 Potassium 3.7 Chloride 104 Carbon Dioxide 31 Anion Gap 5 L BUN 16 D Creatinine 0.8 Creat Clearance w eGFR > 60 Random Glucose 89 Calcium 8.9 Total Bilirubin 0.5 D AST 32 D ALT 48 Alkaline Phosphatase 112 Total Protein 7.3 Albumin 3.0 L RPR Titer Nonreactive u/a pending Assessment: 06/05/17 13:12 withdrawwl sx Plan: cont detox
[2017-06-05 16:17] LABS: URINE APPEARANCE CLEAR; URINE BILIRUBIN NEGATIVE (NEGATIVE); URINE BLOOD NEGATIVE (NEGATIVE); URINE COLOR YELLOW; URINE GLUCOSE (UA) NEGATIVE (NEGATIVE); URINE KETONE NEGATIVE (NEGATIVE); URINE LEUK ESTERASE NEGATIVE (NEGATIVE); URINE NITRITE NEGATIVE (NEGATIVE); URINE PROTEIN NEGATIVE (NEGATIVE); URINE UROBILINOGEN NEGATIVE mg/dL (0.2-1.0)
[2017-06-05] MEDS: THIAMINE HCL 100 MG TABLET (FP) PO SCH (22:25)
[2017-06-05] MEDS: diphenhydrAMINE HCL 50 MG CAPSULE PO PRN (22:26)
[2017-06-05] MEDS: BACITRACIN 0.9 GM PACKET TP SCH (22:27)
[2017-06-05] MEDS: LIDOCAINE PATCH REMOVAL MC SCH (22:40)
[2017-06-06] MEDS: CYCLOBENZAPRINE HCL 10 MG TABLET (FP) PO SCH ×3 (06:35→22:16)
[2017-06-06] MEDS ORDERED: METHADONE HCL 5 MG TABLET (FOR DETOX USE ONLY) PO ONE ×2 (10:00)
[2017-06-06] MEDS: diazePAM 5 MG TABLET PO PRN ×2 (10:29→22:17)
[2017-06-06] MEDS: PRENATAL VITAMINS W/ FOLIC ACID TABLET (FP) PO SCH (10:29)
[2017-06-06] MEDS: LIDOCAINE 5% TOPICAL PATCH TP SCH (10:30)
[2017-06-06] MEDS: NICOTINE 21 MG/24 HOURS TOPICAL PATCH TD SCH (10:30)
--- NOTE | 2017-06-06 11:36 | PN ---
BHS Progress Note (SOAP) Subjective: ALERT,IRRITABLE,ANXIOUS,INTERRUPTED SLEEP,PAIN IN THE BODY Objective: 06/06/17 11:35 Vital Signs Temperature 97.0 F L 06/06/17 10:02 Pulse Rate 93 H 06/06/17 10:02 Respiratory Rate 18 06/06/17 10:02 Blood Pressure 107/78 06/06/17 10:02 O2 Sat by Pulse Oximetry (%) Assessment: 06/06/17 11:35 WITHDRAWAL SYMPTOM Plan: CONTINUE DETOX
[2017-06-06] MEDS: THIAMINE HCL 100 MG TABLET (FP) PO SCH (22:16)
[2017-06-06] MEDS: BACITRACIN 0.9 GM PACKET TP SCH (22:19)
[2017-06-06] MEDS: LIDOCAINE PATCH REMOVAL MC SCH (22:19)
[2017-06-07] MEDS: CYCLOBENZAPRINE HCL 10 MG TABLET (FP) PO SCH ×3 (05:07→22:09)
[2017-06-07] MEDS: IBUPROFEN 400 MG TABLET (FP) PO PRN (05:07)
[2017-06-07] MEDS ORDERED: METHADONE HCL 5 MG TABLET (FOR DETOX USE ONLY) PO ONE (10:00)
[2017-06-07] MEDS ORDERED: METHADONE HCL 10 MG TABLET (FOR DETOX USE ONLY) PO ONE (10:00)
[2017-06-07] MEDS ORDERED: hydrOXYzine PAMOATE 50 MG CAPSULE (FP) PO PRN (10:07)
--- NOTE | 2017-06-07 10:09 | PN ---
BHS Progress Note (SOAP) Subjective: nausea, sweats, interrupted sleep, anxiety, tremors Objective: 06/07/17 10:08 Vital Signs - 8 hr 06/07/17 06/07/17 06/07/17 03:30 06:00 09:59 Temperature 97.3 F L 97.7 F Pulse Rate 98 H 94 H Respiratory 18 18 18 Rate Blood Pressure 120/86 104/66 Laboratory Tests 06/04/17 06/04/17 06/04/17 07:00 07:00 07:00 WBC 5.7 RBC 4.23 Hgb 11.8 Hct 35.9 MCV 84.9 MCH 27.9 MCHC 32.9 RDW 15.0 Plt Count 195 MPV 9.3 Sodium 140 Potassium 3.7 Chloride 104 Carbon Dioxide 31 Anion Gap 5 L BUN 16 D Creatinine 0.8 Creat Clearance w eGFR > 60 Random Glucose 89 Calcium 8.9 Total Bilirubin 0.5 D AST 32 D ALT 48 Alkaline Phosphatase 112 Total Protein 7.3 Albumin 3.0 L Urine Color Urine Appearance Urine pH Ur Specific [place] Urine Protein Urine Glucose (UA) Urine Ketones Urine Blood Urine Nitrite Urine Bilirubin Urine Urobilinogen Ur Leukocyte Esterase RPR Titer Nonreactive 06/05/17 10:30 WBC RBC Hgb Hct MCV MCH MCHC RDW Plt Count MPV Sodium Potassium Chloride Carbon Dioxide Anion Gap BUN Creatinine Creat Clearance w eGFR Random Glucose Calcium Total Bilirubin AST ALT Alkaline Phosphatase Total Protein Albumin Urine Color Yellow Urine Appearance Clear Urine pH 6.0 Ur Specific [place] 1.020 Urine Protein Negative Urine Glucose (UA) Negative Urine Ketones Negative Urine Blood Negative Urine Nitrite Negative Urine Bilirubin Negative Urine Urobilinogen Negative Ur Leukocyte Esterase Negative RPR Titer Assessment: 06/07/17 10:08 withdrawal sx Plan: cont detox, fluids
[2017-06-07] MEDS: NICOTINE 21 MG/24 HOURS TOPICAL PATCH TD SCH (10:27)
[2017-06-07] MEDS: PRENATAL VITAMINS W/ FOLIC ACID TABLET (FP) PO SCH (10:27)
[2017-06-07] MEDS: LIDOCAINE 5% TOPICAL PATCH TP SCH (10:27)
[2017-06-07] MEDS: cloNIDine HCL 0.1 MG TABLET PO SCH ×2 (10:45→22:09)
[2017-06-07] MEDS: THIAMINE HCL 100 MG TABLET (FP) PO SCH (22:09)
[2017-06-07] MEDS: diphenhydrAMINE HCL 50 MG CAPSULE PO PRN (22:09)
[2017-06-07] MEDS: LIDOCAINE PATCH REMOVAL MC SCH (22:10)
[2017-06-07] MEDS: BACITRACIN 0.9 GM PACKET TP SCH (22:10)
[2017-06-08] MEDS: CYCLOBENZAPRINE HCL 10 MG TABLET (FP) PO SCH (05:48)
[2017-06-08] MEDS ORDERED: METHADONE HCL 5 MG TABLET (FOR DETOX USE ONLY) PO ONE (06:00)
[2017-06-08 06:17] VITALS: BP 103/69; PULSE 69; TEMP 98.1
--- NOTE | 2017-06-08 09:09 | DS ---
[facility] Detox Discharge Summary Admission Date: 06/03/17 Discharge Date: 06/08/17 - History Present History: Alcohol Dependence, Opioid Dependence Pertinent Past History: nicotine, anxiety, depression, insomnia, asthma, Hep c+ - Physical Exam Results Vital Signs: Vital Signs Temperature 98.1 F 06/08/17 06:17 Pulse Rate 69 06/08/17 06:17 Respiratory Rate 16 06/08/17 06:17 Blood Pressure 103/69 06/08/17 06:17 O2 Sat by Pulse Oximetry (%) Laboratory Tests 06/04/17 06/04/17 06/04/17 07:00 07:00 07:00 WBC 5.7 RBC 4.23 Hgb 11.8 Hct 35.9 MCV 84.9 MCH 27.9 MCHC 32.9 RDW 15.0 Plt Count 195 MPV 9.3 Sodium 140 Potassium 3.7 Chloride 104 Carbon Dioxide 31 Anion Gap 5 L BUN 16 D Creatinine 0.8 Creat Clearance w eGFR > 60 Random Glucose 89 Calcium 8.9 Total Bilirubin 0.5 D AST 32 D ALT 48 Alkaline Phosphatase 112 Total Protein 7.3 Albumin 3.0 L Urine Color Urine Appearance Urine pH Ur Specific [place] Urine Protein Urine Glucose (UA) Urine Ketones Urine Blood Urine Nitrite Urine Bilirubin Urine Urobilinogen Ur Leukocyte Esterase RPR Titer Nonreactive 06/05/17 10:30 WBC RBC Hgb Hct MCV MCH MCHC RDW Plt Count MPV Sodium Potassium Chloride Carbon Dioxide Anion Gap BUN Creatinine Creat Clearance w eGFR Random Glucose Calcium Total Bilirubin AST ALT Alkaline Phosphatase Total Protein Albumin Urine Color Yellow Urine Appearance Clear Urine pH 6.0 Ur Specific [place] 1.020 Urine Protein Negative Urine Glucose (UA) Negative Urine Ketones Negative Urine Blood Negative Urine Nitrite Negative Urine Bilirubin Negative Urine Urobilinogen Negative Ur Leukocyte Esterase Negative RPR Titer Pertinent Admission Physical Exam Findings: withdrawal sx - Treatment Hospital Course: Detox Protocol Followed, Detoxed Safely, Responded well, Discharged Condition Good, Rehab Referral Accepted Patient has Accepted a Rehab Referral to: Y - Medication Discharge Medications: Ambulatory Orders Albuterol Sulfate Inhaler - [Ventolin HFA Inhaler -] 2 inh PO Q4H PRN #1 inh - Diagnosis (1) Nicotine dependence Current Visit: Yes Status: Chronic Qualifiers: Nicotine product type: cigarettes Substance use status: in withdrawal Qualified Code(s): F17.213 - Nicotine dependence, cigarettes, with withdrawal (2) Opioid dependence with withdrawal Current Visit: Yes Status: Chronic (3) Asthma Current Visit: Yes Status: Chronic (4) Hepatitis C Current Visit: Yes Status: Chronic Qualifiers: Viral hepatitis chronicity: chronic Hepatic coma status: without hepatic coma Qualified Code(s): B18.2 - Chronic viral hepatitis C (5) Alcohol dependence with uncomplicated withdrawal Current Visit: Yes Status: Acute (6) Cocaine dependence Current Visit: No Status: Acute Qualifiers: Substance use status: uncomplicated Qualified Code(s): F14.20 - Cocaine dependence, uncomplicated (7) Substance induced mood disorder Current Visit: Yes Status: Acute (8) Alcohol dependence Current Visit: No Status: Chronic (9) Opioid-induced mood disorder Current Visit: No Status: Suspected - AMA Did Patient Leave Against Medical Advice: No
[2017-06-08] MEDS ORDERED: METHADONE HCL 10 MG TABLET (FOR DETOX USE ONLY) PO ONE (10:00)
[2017-06-09] MEDS ORDERED: METHADONE HCL 5 MG TABLET (FOR DETOX USE ONLY) PO ONE (06:00)
== END 2017-06-08 09:06 | disposition home or self-care (01) | DRG 773 ==
LOC: YASAS 21:27 → Y6N 23:31
PROVIDERS: ADMIT Internal Medicine Addiction Medicine; ATTEND Internal Medicine Addiction Medicine
PROC: HZ2ZZZZ Detoxification Services for Substance Abuse Treatment (ICD-10-PCS; principal; 2017-06-03)
DX: F11.23 Opioid dependence with withdrawal (principal); F11.24 Opioid dependence with opioid-induced mood disorder; F10.230 Alcohol dependence with withdrawal, uncomplicated; F14.20 Cocaine dependence, uncomplicated; F17.213 Nicotine dependence, cigarettes, with withdrawal; F19.24 Other psychoactive substance dependence with psychoactive substance-induced mood disorder; F34.1 Dysthymic disorder; J45.909 Unspecified asthma, uncomplicated; B18.2 Chronic viral hepatitis C; Z87.898 Personal history of other specified conditions
CPT/HCPCS: 36415; 80053; 81003; 85027; 86593; 93005; 93010

== ENCOUNTER 2019-04-24 08:59 | Inpatient (IN) | payer OTHER ==
[2019-04-24 10:15] VITALS: BMI 28.7
--- NOTE | 2019-04-24 10:40 | HP ---
CIWA Score Nausea/Vomitin Muscle Tremors: 2 Anxiety: 1-Mildly Anxious Agitation: 1-Slight > Activity Paroxysmal Sweats: 2 Orientation: 0-Oriented Tacttile Disturbances: 1-Very Mild Itch/Numbness Auditory Disturbances: 1-Very Mild Visual Disturbances: 1-Very Mild Sensitivity Headache: 2-Mild CIWA-Ar Total Score: 13 - Admission Criteria OASAS Guidelines: Admission for Medically Managed Detox: Requires at least one of the followin. CIWA greater than 12 2. Seizures within the past 24 hours 3. Delirium tremens within the past 24 hours 4. Hallucinations within the past 24 hours 5. Acute intervention needed for co occurring medical disorder 6. Acute intervention needed for co occurring psychiatric disorder 7. Severe withdrawal that cannot be handled at a lower level of care (continued vomiting, continued diarrhea, abnormal vital signs) requiring intravenous medication and/or fluids 8. Patient presents the following: CIWA greater than 12 Admission Criteria Met: Admission criteria met Admission ROS [facility] - [facility] Chief Complaint: "I need detox so I can go into a program in [place]" Allergies/Adverse Reactions: Allergies Allergy/AdvReac Type Severity Reaction Status Date / Time No Known Allergies Allergy Verified 04/24/19 10:03 History of Present Illness: Patient is a 49 year old man who presents for detox from heroin and alcohol. Patient was here in July of 2018 but declined treatment stating he was brought here against his will. In October of this year he came back but after signing in, he left without going through the admission process following which he was incarcerated until February. He denies blackouts or seizures related to alcohol intoxication. He is admitted in no apparent distress. Exam Limitations: No Limitations - Ebola screening Have you traveled outside of the country in the last 21 days: No (N) Have you had contact with anyone from an Ebola affected area: No Have you been sick,other than usual withdrawal symptoms: No Do you have a fever: No - Review of Systems Constitutional: Chills, Loss of Appetite, Changes in sleep EENT: reports: No Symptoms Reported Respiratory: reports: Cough Cardiac: reports: No Symptoms Reported GI: reports: Poor Appetite, Poor Fluid Intake, Abdominal cramping : reports: No Symptoms Reported Musculoskeletal: reports: Back Pain, Joint Pain, Muscle Pain, Muscle Weakness Integumentary: reports: Lesions (due to nature of work) Neuro: reports: Headache, Numbness, Tingling, Tremors Endocrine: reports: No Symptoms Reported Hematology: reports: No Symptoms Reported Psychiatric: reports: No Sypmtoms Reported Other Systems: Reviewed and Negative Patient History - Patient Medical History Hx Anemia: No Hx Asthma: Yes Hx Chronic Obstructive Pulmonary Disease (COPD): No Hx Cancer: No Hx Cardiac Disorders: No Hx Congestive Heart Failure: No Hx Hypertension: No Hx Hypercholesterolemia: No Hx Pacemaker: No HX Cerebrovascular Accident: No Hx Seizures: No Hx Dementia: No Hx Diabetes: No Hx Gastrointestinal Disorders: No Hx Liver Disease: No Hx Genitourinary Disorders: No Hx Sexually Transmitted Disorders: No Hx Renal Disease (ESRD): No Hx Thyroid Disease: No Hx Human Immunodeficiency Virus (HIV): No Hx Hepatitis C: Yes (2012 - untreated) Hx Depression: Yes (currently denies) Hx Suicide Attempt: No Hx Bipolar Disorder: No Hx Schizophrenia: No - Patient Surgical History Past Surgical History: Yes Hx Neurologic Surgery: No Hx Cataract Extraction: No Hx Cardiac Surgery: No Hx Lung Surgery: No Hx Breast Surgery: No Hx Breast Biopsy: No Hx Abdominal Surgery: No Hx Appendectomy: No Hx Cholecystectomy: No Hx Genitourinary Surgery: No Hx Section: No Hx Orthopedic Surgery: Yes (R ANKLE SX IN 07/16) Other Surgical History: L HAND SX IN 2007 Anesthesia Reaction: No - PPD History Previous Implant?: Yes Documented Results: Negative w/proof Implanted On Prior [facility] Admission?: Yes Date: 09/15/16 Results: 0 mm PPD to be Administered?: No - Smoking Cessation Smoking history: Current every day smoker Have you smoked in the past 12 months: Yes Aproximately how many cigarettes per day: 10 Cigars Per Day: 0 Hx Chewing Tobacco Use: No Initiated information on smoking cessation: Yes 'Breaking Loose' booklet given: 04/24/19 - Substances abused Heroin Substance route: Injection Frequency: Daily Amount used: 4 bags daily Age of first use: 38 Date of last use: 04/24/19 Cocaine Substance route: Smoking Frequency: 1-2 times per week Amount used: $20 Age of first use: 38 Date of last use: 04/22/19 Family Disease History - Family Disease History Family Disease History: Other: Father (no contact), Mother (alive, healthy) Admission Physical Exam BHS - Vital Signs Vital Signs: Vital Signs - 24 hr 04/24/19 10:05 Temperature 97.0 F L Pulse Rate 70 Respiratory 16 Rate Blood Pressure 118/64 - Physical General Appearance: Yes: No Apparent Distress HEENTM: Yes: Hearing grossly Normal, Normocephalic, Normal Voice, JAMES, Other ( edentulous) Respiratory: Yes: Chest Non-Tender, Lungs Clear, Normal Breath Sounds, No Respiratory Distress, No Accessory Muscle Use Neck: Yes: No masses,lesions,Nodules, Supple Breast: Yes: Breast Exam Deferred Cardiology: Yes: Regular Rhythm, Regular Rate, S1, S2 Abdominal: Yes: Normal Bowel Sounds, Non Tender Genitourinary: Yes: Within Normal Limits Back: Yes: Normal Inspection Musculoskeletal: Yes: full range of Motion, Gait Steady, Pelvis Stable Extremities: Yes: Tremors 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, Fully Oriented, Alert, Motor Strength 5/5, Normal Mood/Affect, Normal Response Integumentary: Yes: Clammy, Track Dhillon, Other (multiple lesions) - Diagnostic (1) Alcohol dependence with uncomplicated withdrawal Current Visit: Yes Status: Acute (2) Cocaine dependence Current Visit: Yes Status: Acute Qualifiers: Substance use status: uncomplicated Qualified Code(s): F14.20 - Cocaine dependence, uncomplicated (3) Asthma Current Visit: No Status: Chronic (4) Hepatitis C Current Visit: No Status: Chronic Qualifiers: Viral hepatitis chronicity: chronic Hepatic coma status: without hepatic coma Qualified Code(s): B18.2 - Chronic viral hepatitis C Cleared for Admission [facility] - Detox or Rehab [facility] Level of Care: Medically Managed Detox Regimen/Protocol: Methadone/Librium Claeared for Rehab Admission: No Breathalyzer - Breathalyzer Breathalyzer: 0 Urine Drug Screen - Test Device Lot number: [id number] Expiration date: 02/02/21 - Control Is test valid?: Yes - Results Drug screen NEGATIVE: No Urine drug screen results: DANIE-Cocaine, MET-Methamphetamine, FEN-Fentanyl, MOP- Opiates, OXY-Oxycodone Inpatient Rehab Admission - Rehab Decision to Admit Inpatient rehab admission?: No
[2019-04-24] MEDS ORDERED: METHOCARBAMOL 500 MG TABLET PO PRN (10:51)
[2019-04-24] MEDS ORDERED: ACETAMINOPHEN 325 MG TABLET (FP) PO PRN ×2 (10:51)
[2019-04-24] MEDS ORDERED: cloNIDine HCL 0.1 MG TABLET PO PRN (10:51)
[2019-04-24] MEDS ORDERED: MAGNESIUM HYDROX 2400MG/30ML ORAL SUSPENSION 30 ML CUP PO PRN (10:51)
[2019-04-24] MEDS ORDERED: NALOXONE HCL 0.4 MG/ML VIAL IM PRN (10:51)
[2019-04-24] MEDS ORDERED: MAG HYDROX/AL HYDROX/SIMETH 30 ML UNIT-DOSE CUP PO PRN (10:51)
[2019-04-24] MEDS ORDERED: MENTHOL/PHENOL 1 EACH UD MM PRN (10:51)
[2019-04-24] MEDS ORDERED: MELATONIN 5 MG TABLETS PO PRN (10:51)
[2019-04-24] MEDS ORDERED: MAGNESIUM CITRATE 300 ML BOTTLE PO PRN (10:51)
[2019-04-24] MEDS ORDERED: BISMUTH SUBSALICYLATE 524 MG/30 ML UD PO PRN (10:51)
[2019-04-24] MEDS ORDERED: chlordiazePOXIDE HCL 10 MG CAPSULE PO PRN (10:51)
[2019-04-24] MEDS ORDERED: IBUPROFEN 400 MG TABLET (FP) PO PRN (10:51)
[2019-04-24] MEDS ORDERED: METHADONE HCL 10 MG TABLET (FOR DETOX USE ONLY) PO ONE (12:00)
[2019-04-24] MEDS: chlordiazePOXIDE HCL 25 MG CAPSULE PO SCH ×2 (12:06→23:15)
[2019-04-24] MEDS: THIAMINE HCL 100 MG TABLET (FP) PO SCH (23:15)
--- NOTE | 2019-04-24 23:58 | EKG ---
Test Reason : Blood Pressure : / mmHG Vent. Rate : 063 BPM Atrial Rate : 063 BPM P-R Int : 150 ms QRS Dur : 094 ms QT Int : 396 ms P-R-T Axes : 059 056 045 degrees QTc Int : 405 ms [address]AL SINUS RHYTHM [address] ELEVATION, CONSIDER EARLY REPOLARIZATION BORDERLINE ECG WHEN COMPARED WITH ECG OF 03-JUN-2017 23:29, NO SIGNIFICANT CHANGE WAS FOUND Confirmed by GIUSEPPE FORBES, CJ ([id number]) on 04/24/2019 11:58:31 PM Referred By: BROOKE MOMIN Confirmed By:CJ CHIN MD
[2019-04-25] MEDS: chlordiazePOXIDE HCL 25 MG CAPSULE PO SCH ×3 (06:15→21:39)
[2019-04-25] MEDS ORDERED: METHADONE HCL 5 MG TABLET (FOR DETOX USE ONLY) PO ONE (10:00)
[2019-04-25] MEDS: PRENATAL VITAMINS W/ FOLIC ACID TABLET (FP) PO SCH (10:18)
[2019-04-25 10:40] LABS: ALBUMIN 3.2 g/dl (3.4-5.0); BILIRUBIN,TOTAL 0.4 mg/dL (0.2-1); BLOOD UREA NITROGEN 13.2 mg/dL (7-18); CALCIUM 8.3 mg/dL (8.5-10.1); CREATININE 0.8 mg/dL (0.55-1.3); POTASSIUM 4.3 mmol/L (3.5-5.1); TOT PROT 7.3 g/dl (6.4-8.2)
[2019-04-25 10:49] LABS: HEMATOCRIT 43.6 % (35.4-49); HEMOGLOBIN 14.5 GM/dL (11.7-16.9); MCH 29.3 pg (25.7-33.7); MCHC 33.2 g/dl (32.0-35.9); MEAN CELL VOLUME 88.5 fl (80-96); MEAN PLT VOLUME 9.9 fl (7.5-11.1); PLATELET COUNT 182 K/MM3 (134-434); RBC 4.93 M/mm3 (4.00-5.60); RDW 13.8 % (11.9-15.9); WHITE BLOOD COUNT 5.7 K/mm3 (4.0-10.0)
--- NOTE | 2019-04-25 14:04 | PN ---
S CIWA - CIWA Score Nausea/Vomitin-No Nausea/No Vomiting Muscle Tremors: 3 Anxiety: 3 Agitation: 2 Paroxysmal Sweats: 2 Orientation: 0-Oriented Tacttile Disturbances: 0-None Auditory Disturbances: 0-None Visual Disturbances: 0-None Headache: 3-Moderate CIWA-Ar Total Score: 13 BHS COWS - Scale Resting Pulse: 0= [place] 80 or Below Sweatin=Flushed/Facial Moisture Restless Observation: 1= Difficult to Sit Still Pupil Size: 0= Normal to Room Light Bone or Joint Aches: 2= Severe Diffuse Aches Runny Nose/ Eye Tearin= Runny Nose/Eyes GI Upset > 30mins: 0= None Tremor Observation of Outstretched Hands: 2= Slight Tremor Visible Yawning Observation: 0= None Anxiety or Irritability: 2=Irritable/Anxious Goose Flesh Skin: 0=Smooth Skin COWS Score: 11 BHS Progress Note (SOAP) Subjective: PATIENT C/O CHILLS, SWEATING, BODY ACHES, RUNNY NOSE AND ANXIETY. Objective: 04/25/19 14:03 Laboratory Tests 04/25/19 04/25/19 04/25/19 07:50 07:50 07:50 WBC 5.7 RBC 4.93 Hgb 14.5 Hct 43.6 D MCV 88.5 MCH 29.3 MCHC 33.2 RDW 13.8 Plt Count 182 MPV 9.9 Sodium 142 Potassium 4.3 Chloride 110 H Carbon Dioxide 28 Anion Gap 4 L BUN 13.2 Creatinine 0.8 Est GFR (CKD-EPI)AfAm 119.88 Est GFR (CKD-EPI)NonAf 103.43 Random Glucose 103 Calcium 8.3 L Total Bilirubin 0.4 AST 29 ALT 46 Alkaline Phosphatase 107 Total Protein 7.3 Albumin 3.2 L RPR Titer Nonreactive Vital Signs Temperature 98.1 F 04/25/19 13:56 Pulse Rate 70 04/25/19 13:56 Respiratory Rate 18 04/25/19 13:56 Blood Pressure 129/78 04/25/19 13:56 O2 Sat by Pulse Oximetry (%) PE ALERT AND ORIENTED X 3 SKIN WARM, +FACIAL MOISTURE +PERRLA, EOMS INTACT BL EXT FULL ROM, +TREMORS AMB AD SADIE ANXIOUS Assessment: 04/25/19 14:03 WITHDRAWAL SX Plan: CONTINUE DETOX ENCOURAGE FLUIDS MONITOR
[2019-04-25] MEDS: THIAMINE HCL 100 MG TABLET (FP) PO SCH (21:39)
[2019-04-26] MEDS ORDERED: chlordiazePOXIDE 5 MG CAPSULE PO SCH (05:00)
[2019-04-26 09:25] VITALS: BP 113/68; PULSE 64; TEMP 98.1
[2019-04-26] MEDS ORDERED: METHADONE HCL 10 MG TABLET (FOR DETOX USE ONLY) PO ONE (10:00)
[2019-04-26] MEDS: PRENATAL VITAMINS W/ FOLIC ACID TABLET (FP) PO SCH (10:15)
--- NOTE | 2019-04-26 10:53 | PN ---
[facility] CIWA - CIWA Score Nausea/Vomitin-No Nausea/No Vomiting Muscle Tremors: 2 Anxiety: 1-Mildly Anxious Agitation: 1-Slight > Activity Paroxysmal Sweats: No Perspiration Orientation: 0-Oriented Tacttile Disturbances: 0-None Auditory Disturbances: 0-None Visual Disturbances: 0-None Headache: 0-None Present CIWA-Ar Total Score: 4 S COWS - Scale Resting Pulse: 0= [place] 80 or Below Sweatin= No chills or Flushing Restless Observation: 1= Difficult to Sit Still Pupil Size: 0= Normal to Room Light Bone or Joint Aches: 1= Mild Discomfort Runny Nose/ Eye Tearin= None GI Upset > 30mins: 0= None Tremor Observation of Outstretched Hands: 0= None Yawning Observation: 0= None Anxiety or Irritability: 0= None Goose Flesh Skin: 0=Smooth Skin COWS Score: 2 S Progress Note (SOAP) Subjective: feeling better little sweats little anxiety Objective: 04/26/19 10:56 Vital Signs Temperature 98.1 F 04/26/19 09:25 Pulse Rate 64 04/26/19 09:25 Respiratory Rate 16 04/26/19 09:25 Blood Pressure 113/68 04/26/19 09:25 O2 Sat by Pulse Oximetry (%) Laboratory Tests 04/25/19 04/25/19 04/25/19 07:50 07:50 07:50 WBC 5.7 RBC 4.93 Hgb 14.5 Hct 43.6 D MCV 88.5 MCH 29.3 MCHC 33.2 RDW 13.8 Plt Count 182 MPV 9.9 Sodium 142 Potassium 4.3 Chloride 110 H Carbon Dioxide 28 Anion Gap 4 L BUN 13.2 Creatinine 0.8 Est GFR (CKD-EPI)AfAm 119.88 Est GFR (CKD-EPI)NonAf 103.43 Random Glucose 103 Calcium 8.3 L Total Bilirubin 0.4 AST 29 ALT 46 Alkaline Phosphatase 107 Total Protein 7.3 Albumin 3.2 L RPR Titer Nonreactive aaox3 ambulating no acute distress Assessment: 04/26/19 10:56 mild withdrawal sx Plan: continue detox with revised medication regimen increase fluids d/c later today
[2019-04-26] MEDS ORDERED: ONDANSETRON *ODT* 4 MG TABLET SL PRN (10:55)
--- NOTE | 2019-04-26 11:02 | DS ---
[facility] Detox Discharge Summary Admission Date: 04/24/19 Discharge Date: 04/26/19 - History Present History: Alcohol Dependence, Cocaine Dependence, Opioid Dependence - Physical Exam Results Vital Signs: Vital Signs Temperature 98.1 F 04/26/19 09:25 Pulse Rate 64 04/26/19 09:25 Respiratory Rate 16 04/26/19 09:25 Blood Pressure 113/68 04/26/19 09:25 O2 Sat by Pulse Oximetry (%) Pertinent Admission Physical Exam Findings: pt arrived in withdrawals Laboratory Tests 04/25/19 04/25/19 04/25/19 07:50 07:50 07:50 WBC 5.7 RBC 4.93 Hgb 14.5 Hct 43.6 D MCV 88.5 MCH 29.3 MCHC 33.2 RDW 13.8 Plt Count 182 MPV 9.9 Sodium 142 Potassium 4.3 Chloride 110 H Carbon Dioxide 28 Anion Gap 4 L BUN 13.2 Creatinine 0.8 Est GFR (CKD-EPI)AfAm 119.88 Est GFR (CKD-EPI)NonAf 103.43 Random Glucose 103 Calcium 8.3 L Total Bilirubin 0.4 AST 29 ALT 46 Alkaline Phosphatase 107 Total Protein 7.3 Albumin 3.2 L RPR Titer Nonreactive today pt is aaox3 ambulating no acute distress pt is going to court in the morning and is feeling fine - Treatment Hospital Course: Detox Protocol Followed, Detoxed Safely, Responded well, Discharged Condition Good, Rehab Referral Accepted Patient has Accepted a Rehab Referral to: pt declined rehab; referral provided - Medication Discharge Medications: Ambulatory Orders NK [No Known Home Medication] 04/24/19 - Diagnosis (1) Alcohol dependence with uncomplicated withdrawal Current Visit: Yes Status: Chronic (2) Cocaine dependence Current Visit: Yes Status: Chronic Qualifiers: Substance use status: uncomplicated Qualified Code(s): F14.20 - Cocaine dependence, uncomplicated (3) Opioid dependence with withdrawal Current Visit: Yes Status: Chronic (4) Substance induced mood disorder Current Visit: No Status: Acute (5) Asthma Current Visit: No Status: Chronic (6) Hepatitis C Current Visit: Yes Status: Chronic Qualifiers: Viral hepatitis chronicity: chronic Hepatic coma status: without hepatic coma Qualified Code(s): B18.2 - Chronic viral hepatitis C (7) Nicotine dependence Current Visit: Yes Status: Chronic Qualifiers: Nicotine product type: cigarettes Substance use status: uncomplicated Qualified Code(s): F17.210 - Nicotine dependence, cigarettes, uncomplicated (8) Opioid dependence with withdrawal Current Visit: Yes Status: Chronic (9) Opioid-induced mood disorder Current Visit: No Status: Suspected - AMA Did Patient Leave Against Medical Advice: No (pt going home; has court tomorrow ; referral provided)
[2019-04-27] MEDS ORDERED: chlordiazePOXIDE HCL 10 MG CAPSULE PO PRN
[2019-04-27] MEDS ORDERED: chlordiazePOXIDE HCL 10 MG CAPSULE PO SCH (05:00)
[2019-04-27] MEDS ORDERED: METHADONE HCL 5 MG TABLET (FOR DETOX USE ONLY) PO ONE (06:00)
[2019-04-28] MEDS ORDERED: chlordiazePOXIDE HCL 10 MG CAPSULE PO ONE (05:00)
== END 2019-04-26 11:20 | disposition home or self-care (01) | DRG 773 ==
LOC: YASAS 08:59 → Y6N 11:15
PROVIDERS: ADMIT Surgery; ATTEND Surgery
PROC: HZ2ZZZZ Detoxification Services for Substance Abuse Treatment (ICD-10-PCS; principal; 2019-04-24)
DX: F11.23 Opioid dependence with withdrawal (principal); F11.24 Opioid dependence with opioid-induced mood disorder; F10.230 Alcohol dependence with withdrawal, uncomplicated; F14.20 Cocaine dependence, uncomplicated; F17.210 Nicotine dependence, cigarettes, uncomplicated; F19.24 Other psychoactive substance dependence with psychoactive substance-induced mood disorder; B18.2 Chronic viral hepatitis C; J45.909 Unspecified asthma, uncomplicated
CPT/HCPCS: 36415; 80053; 85027; 86480; 86593; 93005; 93010; Q0162

== ENCOUNTER 2019-10-22 13:22 | Inpatient (IN) | payer OTHER ==
[2019-10-22 16:34] VITALS: BMI 27.2
--- NOTE | 2019-10-22 18:46 | HP ---
COWS - Scale Resting Pulse: 0= ID 80 or Below Sweatin=Flushed/Facial Moisture Restless Observation: 1= Difficult to Sit Still Pupil Size: 1= Pupils >than Normal Bone or Joint Aches: 2= Severe Diffuse Aches Runny Nose/ Eye Tearin= None GI Upset > 30mins: 2= Nausea/Diarrhea Tremor Observation: 4= Gross Tremor/Twitching Yawning Observation: 0= None Anxiety or Irritability: 1=Feels Anxious/Irritable Goose Flesh Skin: 0=Smooth Skin COWS Score: 13 CIWA Score Nausea/Vomitin Muscle Tremors: 4-Moderate,w/Arms Extend Anxiety: 1-Mildly Anxious Agitation: 1-Slight > Activity Paroxysmal Sweats: 3 (Increased facial moisture) Orientation: 0-Oriented Tacttile Disturbances: 0-None Auditory Disturbances: 0-None Visual Disturbances: 0-None Headache: 0-None Present CIWA-Ar Total Score: 12 - Admission Criteria OASAS Guidelines: Admission for Medically Managed Detox: Requires at least one of the followin. CIWA greater than 12 2. Seizures within the past 24 hours 3. Delirium tremens within the past 24 hours 4. Hallucinations within the past 24 hours 5. Acute intervention needed for co occurring medical disorder 6. Acute intervention needed for co occurring psychiatric disorder 7. Severe withdrawal that cannot be handled at a lower level of care (continued vomiting, continued diarrhea, abnormal vital signs) requiring intravenous medication and/or fluids 8. Patient presents the following: CIWA greater than 12 Admission Criteria Met: Admission criteria met Admitting History and Physical - Smoking History Smoking history: Current every day smoker Have you smoked in the past 12 months: Yes Aproximately how many cigarettes per day: 10 - Alcohol/Substance Use Hx Alcohol Use: No Admission ROS S - HPI Chief Complaint: States wants to "detox off heroin - cause I'm sick of it. I want to move on" Allergies/Adverse Reactions: Allergies Allergy/AdvReac Type Severity Reaction Status Date / Time No Known Allergies Allergy Verified 10/22/19 16:20 History of Present Illness: 49 yo presents w/ alcohol and opioid withdrawal seeking detox. JESSICA: 0.0 UTox: + DANIE/MOP/FEN Heroin use began at age 38. Currently uses 2 bundles/day. IVDU since age 38. Last used about 3 am. Denies sharing needles or works. Has a Narcan kit at home. Cocaine use began at age 14. Currently uses $40/day. IV. Alcohol use began at age 14. Currently drinking approx two 40's beer daily. Last drink 2 days ago. Nicotine use began at age 14. Smokes 1 PPD. Denies hx seizures, overdoses, or blackouts. PMHx: Denies signif PMH TB Gold/QFT: 04/25/19: Negative MHHx: Denies depression or MH problems. Denies thoughts of harming self or others. SHx: Domiciled. Unemployed. Denies legal issues Patient Name: Daljit Neville Date: 1970 Address: [address] [place] [address] Sex: Male Rx Written Rx Dispensed Drug Quantity Days Supply Prescriber Name 05/11/2019 05/11/2019 buprenorphine-naloxone 8-2 mg sl film 14 7 Bonita Tapia MD Patient Name: Daljit Neville Date: 1970 Address: [address] [place] [address] Sex: Male Rx Written Rx Dispensed Drug Quantity Days Supply Prescriber Name 11/11/2018 02/23/2019 chlordiazepoxide 25 mg capsule 26 5 Vergara, Eric A Exam Limitations: No Limitations - Ebola screening Have you traveled outside of the country in the last 21 days: No Have you had contact with anyone from an Ebola affected area: No Have you been sick,other than usual withdrawal symptoms: No Do you have a fever: No - Review of Systems Constitutional: Chills, Weight Stable EENT: reports: Blurred Vision (Need glasses.), Dental Problems (No teeth. Chews an swallows ok.) Respiratory: reports: No Symptoms reported Cardiac: reports: No Symptoms Reported GI: reports: Nausea, Abdominal cramping : reports: No Symptoms Reported Musculoskeletal: reports: Back Pain (Intermittent sharp low back pain. Currently "9". Triggered by withdrawal, sitting, standing too long), Joint Pain (All joints hurt) Integumentary: reports: No Symptoms Reported Neuro: reports: Headache (Frontal headache is a "10" - states r/t aggravation), Tremors Endocrine: reports: Increased Thirst Hematology: reports: No Symptoms Reported Psychiatric: reports: Orientated x3, Agitated, Anxious Patient History - Patient Medical History Hx Anemia: No Hx Asthma: Yes Hx Chronic Obstructive Pulmonary Disease (COPD): No Hx Cancer: No Hx Cardiac Disorders: No Hx Congestive Heart Failure: No Hx Hypertension: No Hx Hypercholesterolemia: No Hx Pacemaker: No HX Cerebrovascular Accident: No Hx Seizures: No Hx Dementia: No Hx Diabetes: No Hx Gastrointestinal Disorders: No Hx Liver Disease: No Hx Genitourinary Disorders: No Hx Sexually Transmitted Disorders: No Hx Renal Disease (ESRD): No Hx Thyroid Disease: No Hx Human Immunodeficiency Virus (HIV): No Hx Hepatitis C: Yes (2012 - untreated) Hx Depression: Yes (currently denies) Hx Suicide Attempt: No Hx Bipolar Disorder: No Hx Schizophrenia: No - Patient Surgical History Past Surgical History: Yes Hx Neurologic Surgery: No Hx Cataract Extraction: No Hx Cardiac Surgery: No Hx Lung Surgery: No Hx Breast Surgery: No Hx Breast Biopsy: No Hx Abdominal Surgery: No Hx Appendectomy: No Hx Cholecystectomy: No Hx Genitourinary Surgery: No Hx Section: No Hx Orthopedic Surgery: Yes (R ANKLE SX IN 07/16) Other Surgical History: L HAND SX IN 2007 Anesthesia Reaction: No - PPD History Previous Implant?: Yes Documented Results: Negative w/proof Implanted On Prior [facility] Admission?: Yes Date: 04/25/19 (TB Gold/QFT: negative) Results: Negative PPD to be Administered?: No - Smoking Cessation Smoking history: Current every day smoker Have you smoked in the past 12 months: Yes Aproximately how many cigarettes per day: 20 Cigars Per Day: 0 Hx Chewing Tobacco Use: No Initiated information on smoking cessation: Yes 'Breaking Loose' booklet given: 10/22/19 - Substances abused Heroin Substance route: Injection Frequency: Daily Amount used: 2 bundles Age of first use: 38 Date of last use: 10/22/19 Cocaine Substance route: Smoking Frequency: Daily Amount used: 100 dollars Age of first use: 14 Date of last use: 10/22/19 Alcohol Substance route: Oral Frequency: Daily Amount used: 2 of 40 ounces of liqour Age of first use: 14 Date of last use: 10/20/19 Admission Physical Exam BHS - Vital Signs Vital Signs: Vital Signs - 24 hr 10/22/19 16:19 Temperature 97.0 F L Pulse Rate 61 Respiratory 16 Rate Blood Pressure 120/73 - Physical General Appearance: Yes: Nourished, Mild Distress, Sweating (Increased facial moisture) HEENTM: Yes: EOMI, Hearing grossly Normal, Normocephalic, Normal Voice, JAMES ( Pupils 4 mm), Pharynx Normal Respiratory: Yes: Lungs Clear (Pulse Ox = 98 % Forced wheeze on expirations), No Respiratory Distress Neck: Yes: No masses,lesions,Nodules, Supple Breast: Yes: Breast Exam Deferred Cardiology: Yes: Regular Rate, S1, S2, Bradycardia Abdominal: Yes: Normal Bowel Sounds, Non Tender, Soft Genitourinary: Yes: Within Normal Limits Back: Yes: Normal Inspection Musculoskeletal: Yes: full range of Motion, Gait Steady Extremities: Yes: Normal Capillary Refill (Peripheral pulses +), Tremors Neurological: Yes: county or city auditor II-XII NML intact, Fully Oriented, Alert, Motor Strength 5/5, Normal Mood/Affect (Appropriate) Integumentary: Yes: Normal Color, Dry (very dry skin.), Warm, Moist (Increased facial moisture), Track Dhillon (Old and new. No increased erythema or warmth.) - Diagnostic (1) Dry skin Current Visit: Yes Status: Chronic (2) Alcohol dependence with uncomplicated withdrawal Current Visit: Yes Status: Acute (3) Asthma Current Visit: No Status: Chronic (4) Cocaine dependence Current Visit: Yes Status: Chronic Qualifiers: Substance use status: uncomplicated Qualified Code(s): F14.20 - Cocaine dependence, uncomplicated (5) Nicotine dependence Current Visit: Yes Status: Chronic Qualifiers: Nicotine product type: cigarettes Substance use status: uncomplicated Qualified Code(s): F17.210 - Nicotine dependence, cigarettes, uncomplicated (6) Opioid dependence with withdrawal Current Visit: Yes Status: Acute Cleared for Admission [facility] - Detox or Rehab Detox Regimen/Protocol: Methadone/Librium Claeared for Rehab Admission: No Breathalyzer - Breathalyzer Breathalyzer: 0 Urine Drug Screen - Test Device Lot number: [id number] Expiration date: 05/05/21 - Control Is test valid?: Yes - Results Drug screen NEGATIVE: Yes Urine drug screen results: DANIE-Cocaine, FEN-Fentanyl, MOP-Opiates Inpatient Rehab Admission - Rehab Decision to Admit Inpatient rehab admission?: No
[2019-10-22] MEDS ORDERED: MAGNESIUM HYDROX 2400MG/30ML ORAL SUSPENSION 30 ML CUP PO PRN (19:25)
[2019-10-22] MEDS ORDERED: ACETAMINOPHEN 325 MG TABLET (FP) PO PRN (19:25)
[2019-10-22] MEDS ORDERED: BISMUTH SUBSALICYLATE 524 MG/30 ML UD PO PRN (19:25)
[2019-10-22] MEDS ORDERED: MAG HYDROX/AL HYDROX/SIMETH 30 ML UNIT-DOSE CUP PO PRN (19:25)
[2019-10-22] MEDS ORDERED: MENTHOL/PHENOL 1 EACH UD MM PRN (19:25)
[2019-10-22] MEDS ORDERED: NICOTINE POLACRILEX 2 MG GUM BUC PRN (19:25)
[2019-10-22] MEDS ORDERED: MAGNESIUM CITRATE 300 ML BOTTLE PO PRN (19:25)
[2019-10-22] MEDS ORDERED: METHADONE HCL 5 MG TABLET (FOR DETOX USE ONLY) PO ONE ×2 (20:00→23:30)
[2019-10-22] MEDS: chlordiazePOXIDE 5 MG CAPSULE PO SCH (20:21)
[2019-10-22] MEDS: THIAMINE HCL 100 MG TABLET (FP) PO SCH (22:27)
[2019-10-22] MEDS: MELATONIN 5 MG TABLETS PO PRN (22:28)
[2019-10-23] MEDS: chlordiazePOXIDE 5 MG CAPSULE PO SCH ×3 (05:55→23:01)
[2019-10-23] MEDS ORDERED: METHADONE HCL 5 MG TABLET (FOR DETOX USE ONLY) ONE (09:03)
[2019-10-23] MEDS ORDERED: METHADONE HCL 10 MG TABLET (FOR DETOX USE ONLY) ONE (09:04)
[2019-10-23] MEDS ORDERED: METHADONE (DETOX) 20 MG, METHADONE (DETOX) 5 MG PO ONE (10:00)
[2019-10-23] MEDS: PRENATAL VITAMINS W/ FOLIC ACID TABLET (FP) PO SCH (10:32)
[2019-10-23] MEDS: NICOTINE 14 MG/24 HOURS TOPICAL PATCH TD SCH (10:32)
[2019-10-23 11:34] LABS: HEMATOCRIT 40.7 % (35.4-49); HEMOGLOBIN 13.6 GM/dL (11.7-16.9); MCH 28.7 pg (25.7-33.7); MCHC 33.4 g/dl (32.0-35.9); MEAN PLT VOLUME 9.9 fl (7.5-11.1); PLATELET COUNT 188 K/MM3 (134-434); RBC 4.73 M/mm3 (4.00-5.60); RDW 14.6 % (11.9-15.9); WHITE BLOOD COUNT 4.5 K/mm3 (4.0-10.0)
[2019-10-23 11:53] LABS: ALBUMIN 3.2 g/dl (3.4-5.0); BLOOD UREA NITROGEN 13.9 mg/dL (7-18); CALCIUM 8.8 mg/dL (8.5-10.1); CREATININE 0.8 mg/dL (0.55-1.3); POTASSIUM 4.5 mmol/L (3.5-5.1); TOT PROT 7.5 g/dl (6.4-8.2)
--- NOTE | 2019-10-23 13:17 | EKG ---
Test Reason : Blood Pressure : / mmHG Vent. Rate : 055 BPM Atrial Rate : 055 BPM P-R Int : 158 ms QRS Dur : 074 ms QT Int : 422 ms P-R-T Axes : 042 066 056 degrees QTc Int : [address] ELEVATION, CONSIDER EARLY REPOLARIZATION BORDERLINE ECG WHEN COMPARED WITH ECG OF 24-APR-2019 11:34, NO SIGNIFICANT CHANGE WAS FOUND Confirmed by GAUDENCIO WALLACE MD ([id number]) on 10/23/2019 1:16:47 PM Referred By: Confirmed By:GAUDENCIO WALLACE MD
--- NOTE | 2019-10-23 16:52 | PN ---
S CIWA - CIWA Score Nausea/Vomitin-No Nausea/No Vomiting Muscle Tremors: None Anxiety: 3 Agitation: 2 Paroxysmal Sweats: 3 Orientation: 0-Oriented Tacttile Disturbances: 2-Mild Itch/Numbness/Burn Auditory Disturbances: 0-None Visual Disturbances: 1-Very Mild Sensitivity Headache: 0-None Present CIWA-Ar Total Score: 11 [facility] COWS - Scale Resting Pulse: 0= SD 80 or Below Sweatin= Chills/Flushing Restless Observation: 1= Difficult to Sit Still Pupil Size: 0= Normal to Room Light Bone or Joint Aches: 2= Severe Diffuse Aches Runny Nose/ Eye Tearin= Nasal Congestion GI Upset > 30mins: 0= None Tremor Observation of Outstretched Hands: 0= None Yawning Observation: 1= 1-2x During Session Anxiety or Irritability: 2=Irritable/Anxious Goose Flesh Skin: 0=Smooth Skin COWS Score: 8 [facility] Progress Note (SOAP) Subjective: Sweating, Body Aches, Anxious. Objective: PATIENT A & O X 3, OBSERVED AMBULATING ON DETOX UNIT UNASSISTED. IN NO ACUTE DISTRESS. 10/23/19 16:51 Vital Signs Temperature 97.3 F L 10/23/19 15:33 Pulse Rate 77 10/23/19 15:33 Respiratory Rate 20 10/23/19 15:33 Blood Pressure 129/80 10/23/19 15:33 O2 Sat by Pulse Oximetry (%) Laboratory Tests 10/23/19 10/23/19 10/23/19 07:30 07:30 07:30 WBC 4.5 RBC 4.73 Hgb 13.6 Hct 40.7 MCV 86.0 MCH 28.7 MCHC 33.4 RDW 14.6 Plt Count 188 MPV 9.9 Sodium 140 Potassium 4.5 Chloride 107 Carbon Dioxide 30 Anion Gap 2 L BUN 13.9 Creatinine 0.8 Est GFR (CKD-EPI)AfAm 119.88 Est GFR (CKD-EPI)NonAf 103.43 Random Glucose 106 Calcium 8.8 Total Bilirubin 1.0 AST 66 H ALT 100 H Alkaline Phosphatase 108 Total Protein 7.5 Albumin 3.2 L RPR Titer Nonreactive LABS NOTED. Assessment: 10/23/19 16:52 WITHDRAWAL SYMPTOMS. ELEVATED AST LEVEL. ELEVATED ALT LEVEL. Plan: CONTINUE DETOX.
[2019-10-23] MEDS: THIAMINE HCL 100 MG TABLET (FP) PO SCH (23:01)
[2019-10-24] MEDS: METHOCARBAMOL 500 MG TABLET PO PRN ×3 (01:23→23:09)
[2019-10-24] MEDS: IBUPROFEN 400 MG TABLET (FP) PO PRN ×3 (01:23→20:15)
[2019-10-24] MEDS: chlordiazePOXIDE HCL 10 MG CAPSULE PO PRN ×2 (01:23→23:09)
[2019-10-24] MEDS: chlordiazePOXIDE HCL 10 MG CAPSULE PO SCH ×3 (06:09→20:17)
[2019-10-24] MEDS: ACETAMINOPHEN 325 MG TABLET (FP) PO PRN ×2 (06:11→23:09)
[2019-10-24] MEDS ORDERED: METHADONE HCL 10 MG TABLET (FOR DETOX USE ONLY) PO ONE (10:00)
[2019-10-24] MEDS: PRENATAL VITAMINS W/ FOLIC ACID TABLET (FP) PO SCH (10:21)
[2019-10-24] MEDS: NICOTINE 14 MG/24 HOURS TOPICAL PATCH TD SCH (10:21)
[2019-10-24] MEDS ORDERED: METHADONE HCL 5 MG TABLET (FOR DETOX USE ONLY) ONE (10:25)
[2019-10-24 10:48] LABS: PH,URINE 7.5 (5.0-8.0); URINE APPEARANCE CLEAR; URINE BILIRUBIN NEGATIVE (NEGATIVE); URINE COLOR YELLOW; URINE GLUCOSE (UA) NEGATIVE (NEGATIVE); URINE KETONE NEGATIVE (NEGATIVE); URINE LEUK ESTERASE NEGATIVE (NEGATIVE); URINE NITRITE NEGATIVE (NEGATIVE); URINE PROTEIN NEGATIVE (NEGATIVE); URINE UROBILINOGEN 0.2 mg/dL (0.2-1.0)
[2019-10-24] MEDS ORDERED: LIDOCAINE 5% TOPICAL PATCH TP ONE (12:08)
--- NOTE | 2019-10-24 14:16 | PN ---
[facility] CIWA - CIWA Score Nausea/Vomitin-No Nausea/No Vomiting Muscle Tremors: 3 Anxiety: 3 Agitation: 3 Paroxysmal Sweats: 2 Orientation: 0-Oriented Tacttile Disturbances: 0-None Auditory Disturbances: 0-None Visual Disturbances: 0-None Headache: 0-None Present CIWA-Ar Total Score: 11 S COWS - Scale Resting Pulse: 0= [place] 80 or Below Sweatin= Chills/Flushing Restless Observation: 1= Difficult to Sit Still Pupil Size: 0= Normal to Room Light Bone or Joint Aches: 2= Severe Diffuse Aches Runny Nose/ Eye Tearin= Nasal Congestion GI Upset > 30mins: 0= None Tremor Observation of Outstretched Hands: 1= Tremor Olivia, Not Seen Yawning Observation: 2= >3x During Session Anxiety or Irritability: 2=Irritable/Anxious Goose Flesh Skin: 0=Smooth Skin COWS Score: 10 [facility] Progress Note (SOAP) Subjective: back pain sweats body aches irritable agitation Objective: 10/24/19 14:15 Vital Signs Temperature 96.1 F L 10/24/19 09:43 Pulse Rate 78 10/24/19 09:43 Respiratory Rate 19 10/24/19 09:43 Blood Pressure 100/70 10/24/19 09:43 O2 Sat by Pulse Oximetry (%) Laboratory Tests 10/23/19 10/23/19 10/23/19 07:30 07:30 07:30 WBC 4.5 RBC 4.73 Hgb 13.6 Hct 40.7 MCV 86.0 MCH 28.7 MCHC 33.4 RDW 14.6 Plt Count 188 MPV 9.9 Sodium 140 Potassium 4.5 Chloride 107 Carbon Dioxide 30 Anion Gap 2 L BUN 13.9 Creatinine 0.8 Est GFR (CKD-EPI)AfAm 119.88 Est GFR (CKD-EPI)NonAf 103.43 Random Glucose 106 Calcium 8.8 Total Bilirubin 1.0 AST 66 H ALT 100 H Alkaline Phosphatase 108 Total Protein 7.5 Albumin 3.2 L Urine Color Urine Appearance Urine pH Ur Specific [place] Urine Protein Urine Glucose (UA) Urine Ketones Urine Blood Urine Nitrite Urine Bilirubin Urine Urobilinogen Ur Leukocyte Esterase RPR Titer Nonreactive 10/24/19 07:30 WBC RBC Hgb Hct MCV MCH MCHC RDW Plt Count MPV Sodium Potassium Chloride Carbon Dioxide Anion Gap BUN Creatinine Est GFR (CKD-EPI)AfAm Est GFR (CKD-EPI)NonAf Random Glucose Calcium Total Bilirubin AST ALT Alkaline Phosphatase Total Protein Albumin Urine Color Yellow Urine Appearance Clear Urine pH 7.5 D Ur Specific [place] 1.014 Urine Protein Negative Urine Glucose (UA) Negative Urine Ketones Negative Urine Blood Negative Urine Nitrite Negative Urine Bilirubin Negative Urine Urobilinogen 0.2 Ur Leukocyte Esterase Negative RPR Titer [id number] ambulating no acute distress Assessment: 10/24/19 14:16 withdrawals Plan: continue detox lidocaine patch motrin 600mg prn roboxin prn
[2019-10-24] MEDS: MELATONIN 5 MG TABLETS PO PRN (20:18)
[2019-10-24] MEDS: THIAMINE HCL 100 MG TABLET (FP) PO SCH (21:28)
[2019-10-24] MEDS ORDERED: LIDOCAINE PATCH REMOVAL MC SCH (22:00)
[2019-10-25] MEDS ORDERED: chlordiazePOXIDE 5 MG CAPSULE PO PRN
[2019-10-25] MEDS: IBUPROFEN 400 MG TABLET (FP) PO PRN (03:24)
[2019-10-25] MEDS ORDERED: chlordiazePOXIDE 5 MG CAPSULE PO SCH (05:00)
[2019-10-25 06:58] VITALS: BP 124/70; PULSE 60; TEMP 96
[2019-10-25] MEDS: METHOCARBAMOL 500 MG TABLET PO PRN (07:23)
--- NOTE | 2019-10-25 09:16 | PN ---
[facility] Progress Note Note: pt states he has things to do and wants to leave now. Pt was advised to stay to complete his detox and prevent relapse, seizure, DTs, OD and or loss, pt chose to sign out AMA.
--- NOTE | 2019-10-25 09:17 | DS ---
[facility] Detox Discharge Summary Admission Date: 10/22/19 - History Present History: Alcohol Dependence, Cocaine Dependence, Opioid Dependence - Physical Exam Results Vital Signs: Vital Signs Temperature 96.0 F L 10/25/19 06:57 Pulse Rate 60 10/25/19 06:57 Respiratory Rate 18 10/25/19 06:57 Blood Pressure 124/70 10/25/19 06:57 O2 Sat by Pulse Oximetry (%) - Treatment Hospital Course: Rehab Referral Accepted - Medication Discharge Medications: Ambulatory Orders NK [No Known Home Medication] 04/24/19 - Diagnosis (1) Alcohol dependence with uncomplicated withdrawal Current Visit: Yes Status: Chronic (2) Opioid dependence with withdrawal Current Visit: Yes Status: Chronic (3) Cocaine dependence Current Visit: Yes Status: Chronic Qualifiers: Substance use status: uncomplicated Qualified Code(s): F14.20 - Cocaine dependence, uncomplicated (4) Dry skin Current Visit: Yes Status: Chronic (5) Nicotine dependence Current Visit: Yes Status: Chronic Qualifiers: Nicotine product type: cigarettes Substance use status: uncomplicated Qualified Code(s): F17.210 - Nicotine dependence, cigarettes, uncomplicated (6) Substance induced mood disorder Current Visit: No Status: Acute (7) Asthma Current Visit: No Status: Chronic (8) Hepatitis C Current Visit: No Status: Chronic Qualifiers: Viral hepatitis chronicity: chronic Hepatic coma status: without hepatic coma Qualified Code(s): B18.2 - Chronic viral hepatitis C (9) Opioid dependence with withdrawal Current Visit: No Status: Chronic (10) Opioid-induced mood disorder Current Visit: No Status: Suspected - AMA Did Patient Leave Against Medical Advice: Yes
[2019-10-25] MEDS ORDERED: LIDOCAINE 5% TOPICAL PATCH TP SCH (10:00)
[2019-10-25] MEDS ORDERED: METHADONE (DETOX) 10 MG, METHADONE (DETOX) 5 MG PO ONE (10:00)
[2019-10-26] MEDS ORDERED: chlordiazePOXIDE 5 MG CAPSULE PO ONE (05:00)
[2019-10-26] MEDS ORDERED: METHADONE HCL 10 MG TABLET (FOR DETOX USE ONLY) PO ONE (10:00)
[2019-10-27] MEDS ORDERED: METHADONE HCL 5 MG TABLET (FOR DETOX USE ONLY) PO ONE (06:00)
== END 2019-10-25 09:12 | disposition left against medical advice (07) | DRG 770 ==
LOC: YASAS 13:22 → Y6N 19:41
PROVIDERS: ADMIT Allergy & Immunology; ATTEND Allergy & Immunology
PROC: HZ2ZZZZ Detoxification Services for Substance Abuse Treatment (ICD-10-PCS; principal; 2019-10-22)
DX: F11.23 Opioid dependence with withdrawal (principal); F11.24 Opioid dependence with opioid-induced mood disorder; F10.230 Alcohol dependence with withdrawal, uncomplicated; F14.20 Cocaine dependence, uncomplicated; F17.210 Nicotine dependence, cigarettes, uncomplicated; F19.24 Other psychoactive substance dependence with psychoactive substance-induced mood disorder; J45.909 Unspecified asthma, uncomplicated; B18.2 Chronic viral hepatitis C; R74.0 Nonspecific elevation of levels of transaminase and lactic acid dehydrogenase [LDH]; R00.1 Bradycardia, unspecified; L98.8 Other specified disorders of the skin and subcutaneous tissue; Z56.0 Unemployment, unspecified
CPT/HCPCS: 36415; 80053; 81003; 85027; 86593; 93005; 93010